=== PATIENT | female | born 1930 | race African-American/Black ===

== ENCOUNTER 2016-09-30 13:04 | Inpatient (IN) | payer MEDICARE, BC ==
[~2016-09-30] VITALS: Ht 309.9 cm; Wt 61.9 kg
[~2016-09-30 13:04] MED LIST: ALPR-394 PO; ASPI-1159 PO; DIGO125T82 PO; DILT180C3 PO; FLUT1DIS3 IH; OMEP20TA15 PO; OXYC-159 PO; POTASSIUM; SINGULAR; TORS100T11 PO; [UNRECOGNIZED DRUG - OTHER]
[2016-09-30 14:25] LABS: BASOPHILS % 0.6 % (0.0-2.0); EOSINOPHILS % 4.2 % (0.0-5.0); HEMATOCRIT. 27.4 % (36.0-48.0); HEMOGLOBIN. 9.1 g/dL (12.0-16.0); LYMPHOCYTES % 17.1 % (20.0-50.0); MEAN CORPUSCULAR HEMOGLOBIN 28.9 pg (28.0-32.0); MEAN CORPUSCULAR VOLUME 87.1 fL (81.0-99.0); MEAN PLATELET VOLUME 8.8 fl (7.4-10.4); MONOCYTES % 8.5 % (2.0-8.0); NEUTROPHILS % 69.6 % (40.0-76.0); PLATELET 213 x1000/uL (130-400); RED BLOOD CELL COUNT 3.14 mill/uL (4.2-5.4); RED CELL DISTRIBUTION WIDTH 17.3 % (11.6-14.6)
[2016-09-30 14:31] LABS: CHLORIDE 109 mEq/L (98-107)
[2016-09-30 14:32] LABS: PARTIAL THROMBOPLASTIN TIME 27.1 sec (23.4-31.0); PROTHROMBIN TIME 10.1 sec (9.4-11.6)
[2016-09-30 14:42] LABS: CARBON DIOXIDE 28 mEq/L (21-32); TROPONIN I 0.05 ng/mL (0.00-0.04)
[2016-09-30 14:47] LABS: CREATINE KINASE MB FRACTION 1.1 ng/mL (0.5-3.6)
[2016-09-30 14:53] LABS: DIGOXIN 0.5 ng/mL (0.9-2.0)
[2016-09-30] MEDS ORDERED: TRAMADOL 50MG TABLET PO ONE (15:45)
[2016-09-30 17:15] VITALS: BP 156/64
[2016-09-30] MEDS ORDERED: MORPHINE SULFATE 4 MG/ML CPJ (NOT FOR IM USE) IV SCH (18:00)
[2016-09-30] MEDS ORDERED: CELECOXIB 200MG CAPSULE PO SCH (18:10)
[2016-09-30 20:00] VITALS: BP 157/56
[2016-09-30] MEDS ORDERED: MORPHINE SULFATE 4 MG/ML CPJ (NOT FOR IM USE) IV PRN (22:45)
[2016-09-30] MEDS ORDERED: ACETAMINOPHEN 325MG TABLET PO PRN (22:45)
[2016-09-30] MEDS ORDERED: MAGNESIUM HYDROXIDE 400MG/5ML 30ML UDC PO PRN (22:45)
[2016-09-30] MEDS ORDERED: CLOPIDOGREL 75MG TABLET PO NR (23:00)
[2016-09-30] MEDS: CYCLOBENZAPRINE 10MG TABLET PO SCH (23:57)
[2016-10-01] VITALS: BP 140/55
[2016-10-01 04:00] VITALS: BP 144/51
[2016-10-01] MEDS: CYCLOBENZAPRINE 10MG TABLET PO SCH ×3 (05:08→21:51)
[2016-10-01] MEDS: HYDROCODONE/ACETAMINOPHEN 10/325MG TABLET PO PRN ×3 (05:10→14:30)
[2016-10-01] MEDS: OMEPRAZOLE 20MG CAPSULE EXTENDED RELEASE PO SCH ×2 (06:32→17:45)
[2016-10-01 07:34] LABS: BASOPHILS % 0.7 % (0.0-2.0); EOSINOPHILS % 5.7 % (0.0-5.0); HEMATOCRIT. 25.7 % (36.0-48.0); HEMOGLOBIN. 8.4 g/dL (12.0-16.0); LYMPHOCYTES % 20.5 % (20.0-50.0); MEAN CORPUSCULAR HEMOGLOBIN 28.7 pg (28.0-32.0); MEAN CORPUSCULAR VOLUME 87.8 fL (81.0-99.0); MEAN PLATELET VOLUME 9.1 fl (7.4-10.4); MONOCYTES % 9.3 % (2.0-8.0); NEUTROPHILS % 63.8 % (40.0-76.0); PLATELET 203 x1000/uL (130-400); RED BLOOD CELL COUNT 2.93 mill/uL (4.2-5.4); RED CELL DISTRIBUTION WIDTH 16.9 % (11.6-14.6)
[2016-10-01 08:00] VITALS: BP 123/60
[2016-10-01 08:52] LABS: CARBON DIOXIDE 27 mEq/L (21-32); CHLORIDE 108 mEq/L (98-107)
[2016-10-01] MEDS: CELECOXIB 100MG CAPSULE PO SCH ×2 (08:53→17:45)
[2016-10-01] MEDS: CLOPIDOGREL 75MG TABLET PO SCH (08:53)
[2016-10-01] MEDS: DILTIAZEM HCL 180MG CAPSULE CD 24HR PO SCH (08:53)
[2016-10-01 11:45] VITALS: BP 140/45
[2016-10-01 15:41] VITALS: BP 145/67
[2016-10-01] MEDS ORDERED: DIGOXIN 125MCG TABLET PO SCH (18:00)
[2016-10-01 20:00] VITALS: BP 143/60
[2016-10-01] MEDS ORDERED: KETOROLAC 15MG/ML VIAL IV SCH (21:30)
[2016-10-01] MEDS ORDERED: NORTRIPTYLINE HCL 10MG CAPSULE PO SCH (21:30)
[2016-10-02] VITALS: BP 152/56
[2016-10-02 04:00] VITALS: BP 147/61
[2016-10-02] MEDS: HYDROCODONE/ACETAMINOPHEN 10/325MG TABLET PO PRN (04:52)
[2016-10-02] MEDS: OMEPRAZOLE 20MG CAPSULE EXTENDED RELEASE PO SCH (06:21)
[2016-10-02] MEDS: CYCLOBENZAPRINE 10MG TABLET PO SCH ×2 (06:21→13:00)
[2016-10-02 06:51] LABS: BASOPHILS % 0.4 % (0.0-2.0); EOSINOPHILS % 7.3 % (0.0-5.0); HEMATOCRIT. 27.8 % (36.0-48.0); HEMOGLOBIN. 8.8 g/dL (12.0-16.0); LYMPHOCYTES % 23.3 % (20.0-50.0); MEAN CORPUSCULAR VOLUME 88.1 fL (81.0-99.0); MEAN PLATELET VOLUME 8.6 fl (7.4-10.4); MONOCYTES % 10.5 % (2.0-8.0); NEUTROPHILS % 58.5 % (40.0-76.0); PLATELET 244 x1000/uL (130-400); RED BLOOD CELL COUNT 3.15 mill/uL (4.2-5.4); RED CELL DISTRIBUTION WIDTH 16.7 % (11.6-14.6)
[2016-10-02 07:08] LABS: CARBON DIOXIDE 26 mEq/L (21-32); CHLORIDE 108 mEq/L (98-107)
[2016-10-02 08:00] VITALS: BP 150/75
[2016-10-02] MEDS: ACETAMINOPHEN 500MG TABLET PO SCH ×2 (08:26→13:00)
[2016-10-02] MEDS: CLOPIDOGREL 75MG TABLET PO SCH (08:27)
[2016-10-02] MEDS: DILTIAZEM HCL 180MG CAPSULE CD 24HR PO SCH (08:27)
[2016-10-02] MEDS ORDERED: GABAPENTIN 100MG CAPSULE PO SCH (09:00)
[2016-10-02] MEDS ORDERED: HEPARIN 1,000 UNITS PREMIX 0 ML IV ONE (09:56)
[2016-10-02 11:26] VITALS: BP_SYST 147; BP_SYST 150; BP_DIAS 61; BP_DIAS 75
[2016-10-02 12:00] VITALS: BP 137/78
[2016-10-02] MEDS ORDERED: NORTRIPTYLINE HCL 10MG CAPSULE PO SCH (21:00)
== END 2016-10-02 14:15 | DRG 64 ==
LOC: ER 13:58 → 8WST 15:31 → EDBEDREQ 15:41 → ENRESERV 16:01
PROVIDERS: ADMIT Internal Medicine; ATTEND Internal Medicine
DX: I63.9 Cerebral infarction, unspecified (principal); G82.50 Quadriplegia, unspecified; D64.9 Anemia, unspecified; I13.0 Hypertensive heart and chronic kidney disease with heart failure and stage 1 through stage 4 chronic kidney disease, or unspecified chronic kidney disease; I47.1 Supraventricular tachycardia; I50.9 Heart failure, unspecified; M48.02 Spinal stenosis, cervical region; G89.4 Chronic pain syndrome; H91.90 Unspecified hearing loss, unspecified ear; J45.909 Unspecified asthma, uncomplicated; M19.90 Unspecified osteoarthritis, unspecified site; N18.9 Chronic kidney disease, unspecified; R29.6 Repeated falls; Z96.653 Presence of artificial knee joint, bilateral; M54.5 Low back pain; K59.00 Constipation, unspecified; Z79.899 Other long term (current) drug therapy; Z88.0 Allergy status to penicillin; Z88.2 Allergy status to sulfonamides; Z90.721 Acquired absence of ovaries, unilateral; Z80.9 Family history of malignant neoplasm, unspecified
CPT/HCPCS: 36415; 70450; 71010; 72125; 72141; 73522; 80048; 80053; 80162; 82553; 83735; 83880; 84484; 85025; 85610; 85651; 85730; 93005; 93970; 97162; 97165; 99285; J1644; J1885; J2270

== ENCOUNTER 2016-10-02 14:17 | Inpatient (IN) | payer MEDICARE, BC ==
[~2016-10-02] VITALS: Ht 160 cm; Wt 59.0 kg
[2016-10-02 16:00] VITALS: BP 139/51
[2016-10-02] MEDS ORDERED: MAGNESIUM HYDROXIDE 400MG/5ML 30ML UDC PO PRN (16:00)
[2016-10-02] MEDS ORDERED: ACETAMINOPHEN 325MG TABLET PO PRN (16:00)
[2016-10-02 18:00] VITALS: BP 139/51
[2016-10-02] MEDS: DIGOXIN 125MCG TABLET PO SCH (18:08)
[2016-10-02] MEDS: GABAPENTIN 100MG CAPSULE PO SCH (18:08)
[2016-10-02] MEDS: OMEPRAZOLE 20MG CAPSULE EXTENDED RELEASE PO SCH (18:08)
[2016-10-02] MEDS: CELECOXIB 100MG CAPSULE PO SCH (18:08)
[2016-10-02] MEDS: ACETAMINOPHEN 500MG TABLET PO SCH ×2 (18:09→21:42)
[2016-10-02 20:00] VITALS: BP 126/65
[2016-10-02] MEDS ORDERED: NA PHOS,M-B/NA PHOS,DI-BA ENEMA 118ML PR PRN (20:45)
[2016-10-02] MEDS ORDERED: BISACODYL 10MG SUPP PR PRN (20:45)
[2016-10-02] MEDS ORDERED: NORTRIPTYLINE HCL 10MG CAPSULE PO SCH (21:00)
[2016-10-02] MEDS: CYCLOBENZAPRINE 10MG TABLET PO SCH (21:42)
[2016-10-03] MEDS: ACETAMINOPHEN 500MG TABLET PO SCH ×4 (04:42→22:00)
[2016-10-03] MEDS: CYCLOBENZAPRINE 10MG TABLET PO SCH ×3 (06:02→22:00)
[2016-10-03] MEDS: OMEPRAZOLE 20MG CAPSULE EXTENDED RELEASE PO SCH ×2 (06:02→16:53)
[2016-10-03 06:39] LABS: BASOPHILS % 0.8 % (0.0-2.0); EOSINOPHILS % 7.5 % (0.0-5.0); HEMATOCRIT. 27.6 % (36.0-48.0); HEMOGLOBIN. 8.9 g/dL (12.0-16.0); LYMPHOCYTES % 18.9 % (20.0-50.0); MEAN CORPUSCULAR HEMOGLOBIN 28.1 pg (28.0-32.0); MEAN CORPUSCULAR VOLUME 87.5 fL (81.0-99.0); MEAN PLATELET VOLUME 8.6 fl (7.4-10.4); MONOCYTES % 9.6 % (2.0-8.0); NEUTROPHILS % 63.2 % (40.0-76.0); PLATELET 255 x1000/uL (130-400); RED BLOOD CELL COUNT 3.16 mill/uL (4.2-5.4); RED CELL DISTRIBUTION WIDTH 16.8 % (11.6-14.6)
[2016-10-03 07:09] LABS: CARBON DIOXIDE 25 mEq/L (21-32); CHLORIDE 108 mEq/L (98-107)
[2016-10-03 07:11] LABS: PREALBUMIN 11.5 mg/dL (20.0-40.0)
[2016-10-03 08:00] VITALS: BP 159/63
[2016-10-03] MEDS: DOCUSATE SODIUM 100MG CAPSULE PO SCH ×2 (08:42→16:53)
[2016-10-03] MEDS: GABAPENTIN 100MG CAPSULE PO SCH ×2 (08:42→16:53)
[2016-10-03] MEDS: DILTIAZEM HCL 180MG CAPSULE CD 24HR PO SCH (08:43)
[2016-10-03] MEDS: CELECOXIB 100MG CAPSULE PO SCH ×2 (08:43→16:53)
[2016-10-03] MEDS: CLOPIDOGREL 75MG TABLET PO SCH (08:44)
[2016-10-03 12:37] VITALS: BP 119/59
[2016-10-03] MEDS: HYDROCODONE/ACETAMINOPHEN 10/325MG TABLET PO PRN (12:40)
[2016-10-03 12:45] VITALS: BP 130/63
[2016-10-03] MEDS: TORSEMIDE 10MG TABLET PO NR ×3 (13:30→16:11)
[2016-10-03 16:00] VITALS: BP 131/62
[2016-10-03] MEDS: DIGOXIN 125MCG TABLET PO SCH (17:05)
[2016-10-03 20:00] VITALS: BP 140/50
[2016-10-03] MEDS ORDERED: NON FORMULARY PATIENT HOME MED EA XX SCH (22:00)
[2016-10-03] MEDS: NORTRIPTYLINE HCL 25MG CAPSULE PO SCH (23:38)
[2016-10-04] MEDS: ACETAMINOPHEN 500MG TABLET PO SCH (03:35)
[2016-10-04] MEDS: CYCLOBENZAPRINE 10MG TABLET PO SCH ×3 (05:31→21:18)
[2016-10-04] MEDS: HYDROCODONE/ACETAMINOPHEN 10/325MG TABLET PO PRN ×2 (05:33→19:42)
[2016-10-04] MEDS: OMEPRAZOLE 20MG CAPSULE EXTENDED RELEASE PO SCH ×2 (06:21→18:05)
[2016-10-04 06:32] LABS: BASOPHILS % 0.6 % (0.0-2.0); EOSINOPHILS % 8.5 % (0.0-5.0); HEMATOCRIT. 26.2 % (36.0-48.0); HEMOGLOBIN. 8.6 g/dL (12.0-16.0); MEAN CORPUSCULAR HEMOGLOBIN 28.7 pg (28.0-32.0); MEAN CORPUSCULAR VOLUME 87.1 fL (81.0-99.0); MEAN PLATELET VOLUME 8.5 fl (7.4-10.4); MONOCYTES % 7.6 % (2.0-8.0); NEUTROPHILS % 57.3 % (40.0-76.0); PLATELET 281 x1000/uL (130-400); RED BLOOD CELL COUNT 3.01 mill/uL (4.2-5.4); RED CELL DISTRIBUTION WIDTH 17.1 % (11.6-14.6)
[2016-10-04 07:37] LABS: CHLORIDE 111 mEq/L (98-107)
[2016-10-04 07:41] LABS: CARBON DIOXIDE 24 mEq/L (21-32); PHOSPHORUS 3.7 mg/dL (2.5-4.9)
[2016-10-04 08:00] VITALS: BP 152/63
[2016-10-04] MEDS ORDERED: NON FORMULARY PATIENT HOME MED EA PO ONE (09:00)
[2016-10-04] MEDS ORDERED: TORSEMIDE 10MG TABLET PO SCH (09:00)
[2016-10-04] MEDS: CELECOXIB 100MG CAPSULE PO SCH ×2 (10:20→18:05)
[2016-10-04] MEDS: DOCUSATE SODIUM 100MG CAPSULE PO SCH ×2 (10:21→18:05)
[2016-10-04] MEDS: CLOPIDOGREL 75MG TABLET PO SCH (10:21)
[2016-10-04] MEDS: GABAPENTIN 100MG CAPSULE PO SCH ×2 (10:21→18:05)
[2016-10-04] MEDS: DILTIAZEM HCL 180MG CAPSULE CD 24HR PO SCH (10:22)
[2016-10-04] MEDS: LIDOCAINE 5% PATCH TOP SCH (10:34)
[2016-10-04] MEDS: OXYCODONE HCL 5MG TABLET PO SCH ×3 (10:37→18:08)
[2016-10-04] MEDS: DIGOXIN 125MCG TABLET PO SCH (18:05)
[2016-10-04] MEDS: TORSEMIDE 10MG TABLET PO SCH (18:17)
[2016-10-04 20:00] VITALS: BP 144/54
[2016-10-04] MEDS: NORTRIPTYLINE HCL 25MG CAPSULE PO SCH (21:18)
[2016-10-05] MEDS: OMEPRAZOLE 20MG CAPSULE EXTENDED RELEASE PO SCH (06:07)
[2016-10-05] MEDS: CYCLOBENZAPRINE 10MG TABLET PO SCH (06:07)
[2016-10-05 06:54] LABS: CLARITY URINE CLEAR (CLEAR); COLOR URINE YELLOW (YELLOW); GLUCOSE URINE NEGATIVE (NEGATIVE); KETONES URINE NEGATIVE (NEGATIVE); LEUKOCYTE ESTERASE URINE NEGATIVE (NEGATIVE); NITRITE URINE NEGATIVE (NEGATIVE); OCCULT BLOOD URINE NEGATIVE (NEGATIVE); PH URINE 5.5 (4.5-8.0); PROTEIN URINE NEGATIVE (NEGATIVE); SPECIFIC GRAVITY URINE 1.008 (1.005-1.030); UROBILINOGEN URINE 0.2 E.U./dL (0.2-1.0)
[2016-10-05 08:00] VITALS: BP 135/70
[2016-10-05 09:34] LABS: BASOPHILS % 0.7 % (0.0-2.0); EOSINOPHILS % 9.9 % (0.0-5.0); HEMATOCRIT. 30.1 % (36.0-48.0); HEMOGLOBIN. 9.9 g/dL (12.0-16.0); LYMPHOCYTES % 24.1 % (20.0-50.0); MEAN CORPUSCULAR HEMOGLOBIN 28.6 pg (28.0-32.0); MEAN CORPUSCULAR VOLUME 86.6 fL (81.0-99.0); MEAN PLATELET VOLUME 8.4 fl (7.4-10.4); NEUTROPHILS % 59.3 % (40.0-76.0); PLATELET 356 x1000/uL (130-400); RED BLOOD CELL COUNT 3.48 mill/uL (4.2-5.4); RED CELL DISTRIBUTION WIDTH 17.4 % (11.6-14.6)
[2016-10-05] MEDS: DILTIAZEM HCL 180MG CAPSULE CD 24HR PO SCH (09:49)
[2016-10-05] MEDS: CELECOXIB 100MG CAPSULE PO SCH ×2 (09:49→16:28)
[2016-10-05] MEDS: DOCUSATE SODIUM 100MG CAPSULE PO SCH ×2 (09:49→16:28)
[2016-10-05] MEDS: TORSEMIDE 10MG TABLET PO SCH (09:50)
[2016-10-05] MEDS: CLOPIDOGREL 75MG TABLET PO SCH (09:50)
[2016-10-05] MEDS: LIDOCAINE 5% PATCH TOP SCH (09:55)
[2016-10-05 10:05] LABS: CARBON DIOXIDE 26 mEq/L (21-32); CHLORIDE 104 mEq/L (98-107); HDL CHOLESTEROL 71 mg/dL (40-59); LDL CHOLESTEROL 108 mg/dL (5-100); PHOSPHORUS 3.9 mg/dL (2.5-4.9); TOTAL IRON BINDING CAPACITY 280 ug/dL (250-450)
[2016-10-05] MEDS: OXYCODONE HCL 5MG TABLET PO SCH ×3 (10:05→16:29)
[2016-10-05 10:28] LABS: FOLIC ACID (FOLATE) SERUM 10.1 ng/mL (>5.38)
[2016-10-05] MEDS: DIGOXIN 125MCG TABLET PO SCH (17:40)
[2016-10-05 20:00] VITALS: BP 101/65
[2016-10-05] MEDS: NORTRIPTYLINE HCL 25MG CAPSULE PO SCH (21:54)
[2016-10-06] MEDS: FAMOTIDINE 20MG TABLET PO SCH (06:17)
[2016-10-06 07:37] VITALS: BP 118/54
[2016-10-06] MEDS: TORSEMIDE 10MG TABLET PO SCH (08:35)
[2016-10-06] MEDS: CELECOXIB 100MG CAPSULE PO SCH ×2 (08:37→17:18)
[2016-10-06] MEDS: OXYCODONE HCL 5MG TABLET PO SCH ×3 (08:37→17:19)
[2016-10-06] MEDS: DOCUSATE SODIUM 100MG CAPSULE PO SCH ×2 (08:37→17:18)
[2016-10-06] MEDS: CLOPIDOGREL 75MG TABLET PO SCH (08:37)
[2016-10-06] MEDS: LIDOCAINE 5% PATCH TOP SCH (08:38)
[2016-10-06 10:10] VITALS: BP 120/44
[2016-10-06] MEDS: DILTIAZEM HCL 180MG CAPSULE CD 24HR PO SCH (10:10)
[2016-10-06 12:20] VITALS: BP 134/51
[2016-10-06 17:15] VITALS: BP 133/50
[2016-10-06] MEDS: DIGOXIN 125MCG TABLET PO SCH (17:18)
[2016-10-06 19:00] VITALS: BP 111/55
[2016-10-06] MEDS: NORTRIPTYLINE HCL 25MG CAPSULE PO SCH (21:36)
[2016-10-06] MEDS: IRON SUCROSE COMPLEX 100 MG in SODIUM CHLORIDE 0.9% 100 ML IV SCH (22:26)
[2016-10-07] MEDS: FAMOTIDINE 20MG TABLET PO SCH (06:26)
[2016-10-07 08:00] VITALS: BP 173/75
[2016-10-07] MEDS: DILTIAZEM HCL 180MG CAPSULE CD 24HR PO SCH (09:00)
[2016-10-07 09:33] VITALS: BP 103/47
[2016-10-07] MEDS: DOCUSATE SODIUM 100MG CAPSULE PO SCH ×2 (09:40→18:20)
[2016-10-07] MEDS: CLOPIDOGREL 75MG TABLET PO SCH (09:40)
[2016-10-07] MEDS: DULOXETINE HCL 20MG DR CAPSULE PO SCH (09:41)
[2016-10-07] MEDS: CELECOXIB 100MG CAPSULE PO SCH ×2 (09:41→18:20)
[2016-10-07] MEDS: TORSEMIDE 10MG TABLET PO SCH (09:42)
[2016-10-07] MEDS: LIDOCAINE 5% PATCH TOP SCH (09:44)
[2016-10-07] MEDS: OXYCODONE HCL 5MG TABLET PO SCH ×3 (09:45→18:21)
[2016-10-07 13:15] VITALS: BP 104/37
[2016-10-07 14:40] VITALS: BP 110/50
[2016-10-07 17:36] VITALS: BP 131/68
[2016-10-07] MEDS: DIGOXIN 125MCG TABLET PO SCH (18:20)
[2016-10-07 20:00] VITALS: BP 117/55
[2016-10-07] MEDS: NORTRIPTYLINE HCL 25MG CAPSULE PO SCH (21:50)
[2016-10-07] MEDS: IRON SUCROSE COMPLEX 100 MG in SODIUM CHLORIDE 0.9% 100 ML IV SCH (21:51)
[2016-10-08] MEDS: FAMOTIDINE 20MG TABLET PO SCH (05:45)
[2016-10-08 07:10] LABS: BASOPHILS % 1.4 % (0.0-2.0); EOSINOPHILS % 7.8 % (0.0-5.0); HEMATOCRIT. 28.6 % (36.0-48.0); HEMOGLOBIN. 9.4 g/dL (12.0-16.0); LYMPHOCYTES % 27.4 % (20.0-50.0); MEAN CORPUSCULAR HEMOGLOBIN 28.3 pg (28.0-32.0); MEAN CORPUSCULAR VOLUME 86.4 fL (81.0-99.0); MEAN PLATELET VOLUME 8.1 fl (7.4-10.4); MONOCYTES % 10.4 % (2.0-8.0); PLATELET 374 x1000/uL (130-400); RED BLOOD CELL COUNT 3.32 mill/uL (4.2-5.4); RED CELL DISTRIBUTION WIDTH 16.8 % (11.6-14.6)
[2016-10-08 07:20] LABS: CARBON DIOXIDE 32 mEq/L (21-32); CHLORIDE 102 mEq/L (98-107)
[2016-10-08 08:00] VITALS: BP 146/48
[2016-10-08] MEDS: TORSEMIDE 10MG TABLET PO SCH (08:11)
[2016-10-08] MEDS: CLOPIDOGREL 75MG TABLET PO SCH (08:12)
[2016-10-08] MEDS: DOCUSATE SODIUM 100MG CAPSULE PO SCH ×2 (08:12→17:26)
[2016-10-08] MEDS: DILTIAZEM HCL 180MG CAPSULE CD 24HR PO SCH (08:13)
[2016-10-08] MEDS: DULOXETINE HCL 20MG DR CAPSULE PO SCH (08:14)
[2016-10-08] MEDS: CELECOXIB 100MG CAPSULE PO SCH ×2 (08:14→17:26)
[2016-10-08] MEDS: OXYCODONE HCL 5MG TABLET PO SCH ×3 (08:17→17:27)
[2016-10-08] MEDS: LIDOCAINE 5% PATCH TOP SCH (08:19)
[2016-10-08] MEDS: LACTULOSE 20G/30ML UDC PO SCH ×3 (14:19→17:00)
[2016-10-08] MEDS: DIGOXIN 125MCG TABLET PO SCH (18:37)
[2016-10-08 20:00] VITALS: BP 120/37
[2016-10-08] MEDS: NORTRIPTYLINE HCL 25MG CAPSULE PO SCH (20:52)
[2016-10-08] MEDS: ATORVASTATIN CALCIUM 10MG TABLET PO SCH (20:52)
[2016-10-08] MEDS: IRON SUCROSE COMPLEX 100 MG in SODIUM CHLORIDE 0.9% 100 ML IV SCH (20:53)
[2016-10-08] MEDS: HYDROCODONE/ACETAMINOPHEN 10/325MG TABLET PO PRN (20:53)
[2016-10-09] MEDS: HYDROCODONE/ACETAMINOPHEN 10/325MG TABLET PO PRN ×3 (03:03→21:48)
[2016-10-09] MEDS: FAMOTIDINE 20MG TABLET PO SCH (06:14)
[2016-10-09 08:00] VITALS: BP 119/50
[2016-10-09] MEDS: TORSEMIDE 10MG TABLET PO SCH (08:37)
[2016-10-09] MEDS: CELECOXIB 100MG CAPSULE PO SCH ×2 (08:38→17:40)
[2016-10-09] MEDS: CLOPIDOGREL 75MG TABLET PO SCH (08:38)
[2016-10-09] MEDS: DOCUSATE SODIUM 100MG CAPSULE PO SCH ×2 (08:38→17:40)
[2016-10-09] MEDS: DULOXETINE HCL 20MG DR CAPSULE PO SCH (08:39)
[2016-10-09] MEDS: OXYCODONE HCL 5MG TABLET PO SCH (08:41)
[2016-10-09] MEDS: DILTIAZEM HCL 180MG CAPSULE CD 24HR PO SCH (08:43)
[2016-10-09] MEDS: LIDOCAINE 5% PATCH TOP SCH (08:45)
[2016-10-09 12:49] LABS: BASOPHILS % 0.9 % (0.0-2.0); EOSINOPHILS % 6.3 % (0.0-5.0); HEMATOCRIT. 29.3 % (36.0-48.0); HEMOGLOBIN. 9.6 g/dL (12.0-16.0); LYMPHOCYTES % 21.5 % (20.0-50.0); MEAN CORPUSCULAR HEMOGLOBIN 28.7 pg (28.0-32.0); MEAN CORPUSCULAR VOLUME 87.6 fL (81.0-99.0); MEAN PLATELET VOLUME 8.4 fl (7.4-10.4); MONOCYTES % 6.9 % (2.0-8.0); NEUTROPHILS % 64.4 % (40.0-76.0); PLATELET 387 x1000/uL (130-400); RED BLOOD CELL COUNT 3.34 mill/uL (4.2-5.4); RED CELL DISTRIBUTION WIDTH 16.8 % (11.6-14.6)
[2016-10-09 15:20] VITALS: BP 113/47
[2016-10-09] MEDS: DIGOXIN 125MCG TABLET PO SCH (17:40)
[2016-10-09 20:00] VITALS: BP 160/52
[2016-10-09] MEDS: NORTRIPTYLINE HCL 25MG CAPSULE PO SCH (21:46)
[2016-10-09] MEDS: ATORVASTATIN CALCIUM 10MG TABLET PO SCH (21:46)
[2016-10-09] MEDS: IRON SUCROSE COMPLEX 100 MG in SODIUM CHLORIDE 0.9% 100 ML IV SCH (21:56)
[2016-10-10 04:18] LABS: 25-HYDROXY VITAMIN D3 22 ng/mL (.)
[2016-10-10] MEDS ORDERED: HYDROCODONE/ACETAMINOPHEN 10/325MG TABLET PO PRN (05:30)
[2016-10-10 06:05] LABS: BASOPHILS % 1.1 % (0.0-2.0); EOSINOPHILS % 7.6 % (0.0-5.0); HEMATOCRIT. 26.6 % (36.0-48.0); HEMOGLOBIN. 8.8 g/dL (12.0-16.0); MEAN CORPUSCULAR HEMOGLOBIN 28.3 pg (28.0-32.0); MEAN CORPUSCULAR VOLUME 86.2 fL (81.0-99.0); MEAN PLATELET VOLUME 8.1 fl (7.4-10.4); MONOCYTES % 7.7 % (2.0-8.0); NEUTROPHILS % 61.6 % (40.0-76.0); PLATELET 391 x1000/uL (130-400); RED BLOOD CELL COUNT 3.09 mill/uL (4.2-5.4)
[2016-10-10] MEDS: FAMOTIDINE 20MG TABLET PO SCH (06:23)
[2016-10-10 08:00] VITALS: BP 132/66
[2016-10-10] MEDS: CELECOXIB 100MG CAPSULE PO SCH (08:31)
[2016-10-10] MEDS: DOCUSATE SODIUM 100MG CAPSULE PO SCH (08:31)
[2016-10-10] MEDS: CLOPIDOGREL 75MG TABLET PO SCH (08:31)
[2016-10-10] MEDS: DULOXETINE HCL 20MG DR CAPSULE PO SCH (08:36)
[2016-10-10] MEDS: DILTIAZEM HCL 180MG CAPSULE CD 24HR PO SCH (08:37)
[2016-10-10] MEDS: LIDOCAINE 5% PATCH TOP SCH (08:37)
[2016-10-10] MEDS: TORSEMIDE 10MG TABLET PO SCH (09:05)
[2016-10-10 11:48] VITALS: BP 132/66
== END 2016-10-10 12:25 | disposition home health service (06) | DRG 64 ==
PROVIDERS: ADMIT Physical Medicine & Rehabilitation Spinal Cord Injury Medicine; ATTEND Internal Medicine
DX: I63.9 Cerebral infarction, unspecified (principal); G82.50 Quadriplegia, unspecified; E46 Unspecified protein-calorie malnutrition; K59.2 Neurogenic bowel, not elsewhere classified; M48.02 Spinal stenosis, cervical region; N31.9 Neuromuscular dysfunction of bladder, unspecified; G95.20 Unspecified cord compression; M50.23 Other cervical disc displacement, cervicothoracic region; R33.9 Retention of urine, unspecified; Z96.653 Presence of artificial knee joint, bilateral; N18.9 Chronic kidney disease, unspecified; K59.00 Constipation, unspecified; I12.9 Hypertensive chronic kidney disease with stage 1 through stage 4 chronic kidney disease, or unspecified chronic kidney disease; G89.4 Chronic pain syndrome; G47.00 Insomnia, unspecified; R26.89 Other abnormalities of gait and mobility; F32.9 Major depressive disorder, single episode, unspecified; D64.9 Anemia, unspecified; M54.81 Occipital neuralgia; F01.50 Vascular dementia, unspecified severity, without behavioral disturbance, psychotic disturbance, mood disturbance, and anxiety; F06.31 Mood disorder due to known physiological condition with depressive features; E61.1 Iron deficiency; R53.81 Other malaise; Z82.49 Family history of ischemic heart disease and other diseases of the circulatory system; Z88.2 Allergy status to sulfonamides; Z88.0 Allergy status to penicillin; Z79.899 Other long term (current) drug therapy; Z87.891 Personal history of nicotine dependence; Z68.23 Body mass index [BMI] 23.0-23.9, adult
CPT/HCPCS: 36415; 80048; 80053; 80061; 81003; 82270; 82306; 82607; 82728; 82746; 83036; 83540; 83550; 83721; 83735; 84100; 84134; 84443; 84630; 85025; 87086; 92523; 97110; 97112; 97116; 97162; 97167; 97530; 97532; 97535; J7050

== ENCOUNTER 2017-05-30 03:27 | Inpatient (IN) | payer MEDICARE, BC ==
[~2017-05-30] VITALS: Ht 160 cm; Wt 66.9 kg
[~2017-05-30 03:27] MED LIST changes: -OXYC-159 PO; -POTASSIUM; -SINGULAR; -[UNRECOGNIZED DRUG - OTHER]
[2017-05-30 04:42] VITALS: BP 153/66
[2017-05-30] MEDS ORDERED: IPRATROPIUM/ALBUTEROL 0.5-3(2.5)MG/3ML NEB HHN PRN ×2 (06:30→15:00)
[2017-05-30 08:00] VITALS: BP 134/51
[2017-05-30] MEDS ORDERED: ALPRAZOLAM 0.5 MG TABLET PO PRN (08:45)
[2017-05-30] MEDS ORDERED: MEDICATION NOT ON FORMULARY EA (Fluticasone/Salmeterol (Advair 250-50 Diskus) 1 DISK) IH PRN (08:45)
[2017-05-30] MEDS ORDERED: MEDICATION NOT ON FORMULARY EA (Alprazolam 1 MG) PO PRN (08:45)
[2017-05-30] MEDS: IPRATROPIUM/ALBUTEROL 0.5-3(2.5)MG/3ML NEB HHN SCH ×4 (08:59→20:13)
[2017-05-30] MEDS ORDERED: ENOXAPARIN 40MG/0.4ML SYR SUBCUT SCH (09:00)
[2017-05-30] MEDS ORDERED: MEDICATION NOT ON FORMULARY EA (Omeprazole Magnesium (Prilosec Otc) 20 MG) PO SCH (09:00)
[2017-05-30] MEDS ORDERED: DIGOXIN 125MCG TABLET PO SCH (09:00)
[2017-05-30] MEDS ORDERED: LEVOFLOXACIN 500MG PREMIX 100 ML IV NR ×2 (09:00→13:00)
[2017-05-30] MEDS ORDERED: DEXT 5% WATER + KCL 20MEQ/L 1,000 ML IV SCH (09:00)
[2017-05-30 12:00] VITALS: BP 149/68
[2017-05-30] MEDS ORDERED: BUDESONIDE 0.5MG/2ML NEB HHN SCH (12:00)
[2017-05-30] MEDS ORDERED: ALBUTEROL (0.083%) 2.5MG/3ML NEB HHN SCH (12:00)
[2017-05-30] MEDS: GUAIFENESIN 200MG/10ML SUGAR FREE UDC PO PRN (12:12)
[2017-05-30] MEDS: DILTIAZEM HCL 180MG CAPSULE CD 24HR PO SCH (12:14)
[2017-05-30] MEDS: HYDROCODONE/ACETAMINOPHEN 10/325MG TABLET PO PRN (12:15)
[2017-05-30] MEDS: GABAPENTIN 300MG CAPSULE PO SCH ×2 (12:15→21:03)
[2017-05-30] MEDS: POTASSIUM CHLORIDE 20MEQ TABLET SR PO SCH ×3 (12:15→17:25)
[2017-05-30] MEDS: ASPIRIN 81MG EC TABLET PO SCH (12:15)
[2017-05-30] MEDS: ENOXAPARIN 30MG/0.3ML SYR SUBCUT SCH (12:16)
[2017-05-30] MEDS: OMEPRAZOLE 20MG CAPSULE EXTENDED RELEASE PO SCH (12:27)
[2017-05-30] MEDS: BENZONATATE 200MG CAPSULE PO SCH ×2 (13:32→13:35)
[2017-05-30] MEDS ORDERED: DILTIAZEM HCL 180MG CAPSULE CD 24HR PO SCH (14:00)
[2017-05-30 16:00] VITALS: BP 111/52
[2017-05-30] MEDS: DIGOXIN 125MCG TABLET PO SCH (17:25)
[2017-05-30] MEDS: DEXT 5%/0.45% NACL KCL 20MEQ/L 1,000 ML IV SCH (17:31)
[2017-05-30 20:00] VITALS: BP 118/41
[2017-05-30 23:58] VITALS: BP 132/53
[2017-05-31] MEDS: IPRATROPIUM/ALBUTEROL 0.5-3(2.5)MG/3ML NEB HHN SCH ×3 (01:02→21:56)
[2017-05-31 04:11] VITALS: BP 94/42
[2017-05-31 06:14] LABS: BASOPHILS % 0.7 % (0.0-2.0); EOSINOPHILS % 6.7 % (0.0-5.0); HEMATOCRIT. 29.1 % (36.0-48.0); HEMOGLOBIN. 9.6 g/dL (12.0-16.0); LYMPHOCYTES % 9.6 % (20.0-50.0); MEAN CORPUSCULAR HEMOGLOBIN 27.9 pg (28.0-32.0); MEAN CORPUSCULAR VOLUME 84.3 fL (81.0-99.0); MEAN PLATELET VOLUME 8.5 fl (7.4-10.4); MONOCYTES % 3.4 % (2.0-8.0); NEUTROPHILS % 79.6 % (40.0-76.0); PLATELET 307 x1000/uL (130-400); RED BLOOD CELL COUNT 3.45 mill/uL (4.2-5.4); RED CELL DISTRIBUTION WIDTH 18.1 % (11.6-14.6)
[2017-05-31] MEDS: OMEPRAZOLE 20MG CAPSULE EXTENDED RELEASE PO SCH (06:30)
[2017-05-31] MEDS: BENZONATATE 200MG CAPSULE PO SCH ×3 (06:30→21:41)
[2017-05-31 06:43] LABS: PHOSPHORUS 2.9 mg/dL (2.5-4.9)
[2017-05-31] MEDS: HYDROCODONE/ACETAMINOPHEN 10/325MG TABLET PO PRN ×2 (06:44→14:31)
[2017-05-31 07:03] LABS: DIGOXIN 1.3 ng/mL (0.9-2.0)
[2017-05-31 07:39] VITALS: BP 109/65
[2017-05-31] MEDS: GABAPENTIN 300MG CAPSULE PO SCH ×2 (08:55→21:41)
[2017-05-31] MEDS: ASPIRIN 81MG EC TABLET PO SCH (08:55)
[2017-05-31] MEDS: GUAIFENESIN 200MG/10ML SUGAR FREE UDC PO PRN ×3 (08:55→18:15)
[2017-05-31] MEDS: POTASSIUM CHLORIDE 20MEQ TABLET SR PO SCH ×3 (08:55→16:47)
[2017-05-31] MEDS: ENOXAPARIN 30MG/0.3ML SYR SUBCUT SCH (08:55)
[2017-05-31] MEDS: DILTIAZEM HCL 180MG CAPSULE CD 24HR PO SCH (08:56)
[2017-05-31] MEDS: DEXT 5%/0.45% NACL KCL 20MEQ/L 1,000 ML IV SCH (10:13)
[2017-05-31] MEDS: LEVOFLOXACIN 250MG PREMIX 50 ML IV SCH (10:14)
[2017-05-31] MEDS: DOCUSATE SODIUM 250MG CAPSULE PO SCH (11:14)
[2017-05-31] MEDS: MAGNESIUM HYDROXIDE 400MG/5ML 30ML UDC PO PRN (11:15)
[2017-05-31] MEDS: METHYLPREDNISOLONE SOD SUCC 40 MG/ML VIAL IV SCH ×2 (11:17→20:35)
[2017-05-31 12:45] VITALS: BP 114/47
[2017-05-31 17:07] VITALS: BP 126/45
[2017-05-31] MEDS: DIGOXIN 125MCG TABLET PO SCH (18:00)
[2017-05-31 20:33] VITALS: BP 136/64
[2017-06-01] VITALS: BP 141/61
[2017-06-01] MEDS: ZOLPIDEM TARTRATE 5MG TABLET PO PRN ×2 (00:02→22:46)
[2017-06-01] MEDS: IPRATROPIUM/ALBUTEROL 0.5-3(2.5)MG/3ML NEB HHN SCH ×4 (01:20→22:25)
[2017-06-01] MEDS: GUAIFENESIN 200MG/10ML SUGAR FREE UDC PO PRN ×2 (03:08→17:51)
[2017-06-01] MEDS: METHYLPREDNISOLONE SOD SUCC 40 MG/ML VIAL IV SCH ×3 (03:08→20:30)
[2017-06-01 04:00] VITALS: BP 136/52
[2017-06-01] MEDS: BENZONATATE 200MG CAPSULE PO SCH ×3 (05:51→22:46)
[2017-06-01] MEDS: DEXT 5%/0.45% NACL KCL 20MEQ/L 1,000 ML IV SCH (05:56)
[2017-06-01 07:00] LABS: HEMATOCRIT. 31.8 % (36.0-48.0); HEMOGLOBIN. 10.4 g/dL (12.0-16.0); MEAN CORPUSCULAR HEMOGLOBIN 27.6 pg (28.0-32.0); MEAN CORPUSCULAR VOLUME 84.5 fL (81.0-99.0); MEAN PLATELET VOLUME 8.4 fl (7.4-10.4); PLATELET 350 x1000/uL (130-400); RED BLOOD CELL COUNT 3.76 mill/uL (4.2-5.4)
[2017-06-01 07:22] LABS: CHLORIDE 104 mEq/L (98-107)
[2017-06-01 08:00] VITALS: BP 116/60
[2017-06-01] MEDS: LEVOFLOXACIN 250MG PREMIX 50 ML IV SCH (10:30)
[2017-06-01] MEDS: GABAPENTIN 300MG CAPSULE PO SCH ×2 (10:31→20:30)
[2017-06-01] MEDS: OMEPRAZOLE 20MG CAPSULE EXTENDED RELEASE PO SCH ×2 (10:32→10:41)
[2017-06-01] MEDS: DILTIAZEM HCL 180MG CAPSULE CD 24HR PO SCH ×2 (10:32→10:45)
[2017-06-01] MEDS: DOCUSATE SODIUM 250MG CAPSULE PO SCH ×2 (10:32→10:41)
[2017-06-01] MEDS: ASPIRIN 81MG EC TABLET PO SCH (10:32)
[2017-06-01] MEDS: ENOXAPARIN 40MG/0.4ML SYR SUBCUT SCH (10:33)
[2017-06-01 12:00] VITALS: BP 155/58
[2017-06-01 16:00] VITALS: BP 148/62
[2017-06-01] MEDS: DIGOXIN 125MCG TABLET PO SCH (17:51)
[2017-06-01 20:00] VITALS: BP 122/77
[2017-06-01] MEDS: DEXT 5%/0.45% NACL 1000ML 1,000 ML IV SCH (20:52)
[2017-06-01] MEDS: MAGNESIUM HYDROXIDE 400MG/5ML 30ML UDC PO PRN (22:47)
[2017-06-01 23:37] LABS: PLATELET ESTIMATE NORMAL
[2017-06-02 00:36] VITALS: BP 143/55
[2017-06-02] MEDS: IPRATROPIUM/ALBUTEROL 0.5-3(2.5)MG/3ML NEB HHN SCH ×2 (01:20→09:06)
[2017-06-02] MEDS: METHYLPREDNISOLONE SOD SUCC 40 MG/ML VIAL IV SCH ×3 (03:42→18:17)
[2017-06-02 04:00] VITALS: BP 137/56
[2017-06-02] MEDS: BENZONATATE 200MG CAPSULE PO SCH ×3 (06:35→21:41)
[2017-06-02] MEDS: OMEPRAZOLE 20MG CAPSULE EXTENDED RELEASE PO SCH (06:35)
[2017-06-02 06:50] LABS: HEMATOCRIT. 32.9 % (36.0-48.0); HEMOGLOBIN. 10.8 g/dL (12.0-16.0); MEAN CORPUSCULAR HEMOGLOBIN 27.6 pg (28.0-32.0); MEAN CORPUSCULAR VOLUME 84.3 fL (81.0-99.0); MEAN PLATELET VOLUME 8.6 fl (7.4-10.4); PLATELET 354 x1000/uL (130-400); RED BLOOD CELL COUNT 3.91 mill/uL (4.2-5.4); RED CELL DISTRIBUTION WIDTH 17.8 % (11.6-14.6)
[2017-06-02 07:06] LABS: CHLORIDE 107 mEq/L (98-107)
[2017-06-02 07:12] LABS: PHOSPHORUS 2.9 mg/dL (2.5-4.9)
[2017-06-02 08:00] VITALS: BP 142/63
[2017-06-02] MEDS: ASPIRIN 81MG EC TABLET PO SCH (09:42)
[2017-06-02] MEDS: GABAPENTIN 300MG CAPSULE PO SCH ×2 (09:42→21:42)
[2017-06-02] MEDS: ENOXAPARIN 40MG/0.4ML SYR SUBCUT SCH (09:44)
[2017-06-02] MEDS: LEVOFLOXACIN 250MG PREMIX 50 ML IV SCH (09:44)
[2017-06-02 12:10] VITALS: BP 144/72
[2017-06-02] MEDS: DEXT 5%/0.45% NACL 1000ML 1,000 ML IV SCH ×2 (12:40→15:49)
[2017-06-02 13:41] LABS: PLATELET ESTIMATE NORMAL
[2017-06-02] MEDS: ARFORMOTEROL TARTRATE 15MCG/2ML NEB NEB SCH ×2 (15:28→21:31)
[2017-06-02] MEDS: IPRATROPIUM BROMIDE (0.02%) 0.5MG/2.5ML NEB HHN SCH ×2 (15:28→21:31)
[2017-06-02 16:02] VITALS: BP 168/63
[2017-06-02] MEDS: DIGOXIN 125MCG TABLET PO SCH (18:17)
[2017-06-02] MEDS: HYDROCODONE/ACETAMINOPHEN 10/325MG TABLET PO PRN (18:27)
[2017-06-02 20:00] VITALS: BP 141/64
[2017-06-02] MEDS ORDERED: MAGNESIUM CITRATE 300ML SOLUTION PO NR (21:00)
[2017-06-02] MEDS: GUAIFENESIN 600MG ER TABLET PO SCH (21:42)
[2017-06-03] VITALS: BP 150/66
[2017-06-03] MEDS: IPRATROPIUM BROMIDE (0.02%) 0.5MG/2.5ML NEB HHN SCH ×5 (00:35→20:13)
[2017-06-03] MEDS: ZOLPIDEM TARTRATE 5MG TABLET PO PRN ×2 (01:10→22:22)
[2017-06-03] MEDS: METHYLPREDNISOLONE SOD SUCC 40 MG/ML VIAL IV SCH ×3 (03:07→18:16)
[2017-06-03 04:00] VITALS: BP 141/67
[2017-06-03] MEDS: FAMOTIDINE 20MG TABLET PO SCH (06:31)
[2017-06-03] MEDS: BENZONATATE 200MG CAPSULE PO SCH ×3 (06:31→21:14)
[2017-06-03 07:42] VITALS: BP 169/76
[2017-06-03] MEDS: ARFORMOTEROL TARTRATE 15MCG/2ML NEB NEB SCH ×2 (08:03→20:12)
[2017-06-03] MEDS: DILTIAZEM HCL 180MG CAPSULE CD 24HR PO SCH (08:42)
[2017-06-03] MEDS: GABAPENTIN 300MG CAPSULE PO SCH ×2 (08:42→21:15)
[2017-06-03] MEDS: GUAIFENESIN 600MG ER TABLET PO SCH ×2 (08:43→21:14)
[2017-06-03] MEDS: ASPIRIN 81MG EC TABLET PO SCH (08:43)
[2017-06-03] MEDS: DOCUSATE SODIUM 250MG CAPSULE PO SCH (08:43)
[2017-06-03] MEDS: ENOXAPARIN 40MG/0.4ML SYR SUBCUT SCH (08:43)
[2017-06-03] MEDS: LEVOFLOXACIN 250MG PREMIX 50 ML IV SCH (09:01)
[2017-06-03] MEDS: MAGNESIUM HYDROXIDE 400MG/5ML 30ML UDC PO PRN (11:55)
[2017-06-03] MEDS: GUAIFENESIN 200MG/10ML SUGAR FREE UDC PO PRN (11:56)
[2017-06-03 11:59] VITALS: BP 158/69
[2017-06-03] MEDS ORDERED: NA PHOS,M-B/NA PHOS,DI-BA ENEMA 118ML PR ONE (15:30)
[2017-06-03 16:11] VITALS: BP 105/81
[2017-06-03] MEDS: DIGOXIN 125MCG TABLET PO SCH (18:16)
[2017-06-03 20:00] VITALS: BP 148/65
[2017-06-03] MEDS: DEXT 5%/0.45% NACL 1000ML 1,000 ML IV SCH (21:15)
[2017-06-04] VITALS: BP 152/73
[2017-06-04] MEDS: IPRATROPIUM BROMIDE (0.02%) 0.5MG/2.5ML NEB HHN SCH ×3 (00:17→13:00)
[2017-06-04] MEDS: METHYLPREDNISOLONE SOD SUCC 40 MG/ML VIAL IV SCH ×2 (02:33→12:08)
[2017-06-04 04:00] VITALS: BP 169/79
[2017-06-04] MEDS: BENZONATATE 200MG CAPSULE PO SCH ×2 (06:30→13:27)
[2017-06-04] MEDS: FAMOTIDINE 20MG TABLET PO SCH (06:30)
[2017-06-04 07:37] VITALS: BP 164/66
[2017-06-04] MEDS: ARFORMOTEROL TARTRATE 15MCG/2ML NEB NEB SCH (09:20)
[2017-06-04] MEDS: DOCUSATE SODIUM 250MG CAPSULE PO SCH (10:11)
[2017-06-04] MEDS: ENOXAPARIN 40MG/0.4ML SYR SUBCUT SCH (10:11)
[2017-06-04] MEDS: ASPIRIN 81MG EC TABLET PO SCH (10:11)
[2017-06-04] MEDS: GUAIFENESIN 600MG ER TABLET PO SCH (10:11)
[2017-06-04] MEDS: GABAPENTIN 300MG CAPSULE PO SCH (10:11)
[2017-06-04] MEDS: DILTIAZEM HCL 180MG CAPSULE CD 24HR PO SCH (10:12)
[2017-06-04] MEDS: LEVOFLOXACIN 250MG PREMIX 50 ML IV SCH (10:12)
[2017-06-04 11:36] VITALS: BP 140/61
[2017-06-04 14:04] LABS: CHLORIDE 109 mEq/L (98-107)
[2017-06-04 14:17] VITALS: BP 140/61
== END 2017-06-04 15:25 | disposition home health service (06) | DRG 193 ==
LOC: 6WST 03:27
PROVIDERS: ADMIT Internal Medicine; ATTEND Internal Medicine
DX: J18.9 Pneumonia, unspecified organism (principal); J96.00 Acute respiratory failure, unspecified whether with hypoxia or hypercapnia; J45.902 Unspecified asthma with status asthmaticus; I47.1 Supraventricular tachycardia; K59.00 Constipation, unspecified; J18.0 Bronchopneumonia, unspecified organism; G47.00 Insomnia, unspecified; M46.86 Other specified inflammatory spondylopathies, lumbar region; M46.82 Other specified inflammatory spondylopathies, cervical region; H91.90 Unspecified hearing loss, unspecified ear; I10 Essential (primary) hypertension; G89.29 Other chronic pain; Z88.0 Allergy status to penicillin; Z88.2 Allergy status to sulfonamides; Z82.5 Family history of asthma and other chronic lower respiratory diseases; Z82.49 Family history of ischemic heart disease and other diseases of the circulatory system; Z84.1 Family history of disorders of kidney and ureter
CPT/HCPCS: 36415; 71250; 80048; 80162; 83735; 84100; 84484; 84550; 85025; 85651; 87070; 93306; 93970; 94640; 97116; 97162; 97165; 97530; 97535; C1893; J1650; J1956; J2920; J3490; J7030; J7050; J7060; J7620; J7626

== ENCOUNTER 2018-04-21 10:52 | Inpatient (IN) | payer MEDICARE, BC ==
[~2018-04-21] VITALS: Ht 160 cm; Wt 51.7 kg
[2018-04-21] MEDS ORDERED: SODIUM CHLORIDE 0.9% 1,000 ML IV ONE (13:12)
[2018-04-21 13:15] LABS: BASOPHILS % 0.3 % (0.0-2.0); EOSINOPHILS % 0.7 % (0.0-5.0); HEMATOCRIT. 32.3 % (36.0-48.0); HEMOGLOBIN. 10.6 g/dL (12.0-16.0); LYMPHOCYTES % 8.3 % (20.0-50.0); MEAN CORPUSCULAR HEMOGLOBIN 25.7 pg (28.0-32.0); MEAN CORPUSCULAR VOLUME 78.5 fL (81.0-99.0); MEAN PLATELET VOLUME 7.4 fl (7.4-10.4); MONOCYTES % 6.6 % (2.0-8.0); NEUTROPHILS % 84.1 % (40.0-76.0); PLATELET 596 x1000/uL (130-400); RED BLOOD CELL COUNT 4.12 mill/uL (4.2-5.4)
[2018-04-21 13:19] LABS: CHLORIDE 101 mEq/L (98-107)
[2018-04-21 13:22] LABS: INR 1.3
[2018-04-21] MEDS ORDERED: METRONIDAZOLE 500 MG PREMIX 100 ML IV ONE (15:15)
[2018-04-21] MEDS ORDERED: LEVOFLOXACIN 750MG PREMIX 150 ML IV ONE (15:15)
[2018-04-21 21:25] LABS: CLARITY URINE CLEAR (CLEAR); COLOR URINE YELLOW (YELLOW); KETONES URINE 1+ (NEGATIVE); LEUKOCYTE ESTERASE URINE 1+ (NEGATIVE); NITRITE URINE NEGATIVE (NEGATIVE); OCCULT BLOOD URINE NEGATIVE (NEGATIVE); PH URINE 6.5 (4.5-8.0); PROTEIN URINE 1+ (NEGATIVE); SPECIFIC GRAVITY URINE 1.009 (1.005-1.030)
[2018-04-22] VITALS (7 sets, daily range): BP systolic 105–151; BP diastolic 45–73
[2018-04-22] MEDS: DEXT 5%/0.45% NACL 1000ML 1,000 ML IV SCH (03:14)
[2018-04-22] MEDS: ONDANSETRON HCL 4MG/2ML INJ IV PRN ×2 (03:14→11:28)
[2018-04-22 06:59] LABS: HEMATOCRIT. 29.7 % (36.0-48.0); HEMOGLOBIN. 9.5 g/dL (12.0-16.0); MEAN CORPUSCULAR VOLUME 78.6 fL (81.0-99.0); MEAN PLATELET VOLUME 7.8 fl (7.4-10.4); PLATELET 500 x1000/uL (130-400); RED BLOOD CELL COUNT 3.78 mill/uL (4.2-5.4); RED CELL DISTRIBUTION WIDTH 18.5 % (11.6-14.6)
[2018-04-22 07:50] LABS: CHLORIDE 104 mEq/L (98-107)
[2018-04-22 07:57] LABS: AMYLASE 32 IU/L (25-115)
[2018-04-22 10:11] LABS: PLATELET ESTIMATE INCREASED
[2018-04-22] MEDS: POTASSIUM CHLORIDE 20MEQ/PACKET PO SCH ×2 (10:51→18:09)
[2018-04-22] MEDS: ENOXAPARIN 30MG/0.3ML SYR SUBCUT SCH (10:51)
[2018-04-22] MEDS: HYDROCODONE/ACETAMINOPHEN 10/325MG TABLET PO PRN (11:28)
[2018-04-22] MEDS ORDERED: ALBUTEROL (0.083%) 2.5MG/3ML NEB HHN PRN (13:45)
[2018-04-22] MEDS ORDERED: NON FORMULARY PATIENT HOME MED XX SCH (13:45)
[2018-04-22] MEDS: DILTIAZEM HCL 180MG CAPSULE CD 24HR PO SCH (14:24)
[2018-04-22] MEDS: OMEPRAZOLE 20MG CAPSULE EXTENDED RELEASE PO SCH (14:43)
[2018-04-22] MEDS: ALPRAZOLAM 0.5 MG TABLET PO SCH (18:10)
[2018-04-22] MEDS: DIGOXIN 125MCG TABLET PO SCH (23:15)
[2018-04-23] VITALS: BP 106/54
[2018-04-23 04:00] VITALS: BP 110/49
[2018-04-23 06:09] LABS: BASOPHILS % 0.7 % (0.0-2.0); EOSINOPHILS % 5.2 % (0.0-5.0); HEMATOCRIT. 29.7 % (36.0-48.0); HEMOGLOBIN. 9.6 g/dL (12.0-16.0); LYMPHOCYTES % 7.2 % (20.0-50.0); MEAN CORPUSCULAR HEMOGLOBIN 25.1 pg (28.0-32.0); MEAN CORPUSCULAR VOLUME 77.6 fL (81.0-99.0); MONOCYTES % 7.7 % (2.0-8.0); NEUTROPHILS % 79.2 % (40.0-76.0); PLATELET 435 x1000/uL (130-400); RED BLOOD CELL COUNT 3.83 mill/uL (4.2-5.4); RED CELL DISTRIBUTION WIDTH 18.4 % (11.6-14.6)
[2018-04-23 06:51] LABS: CHLORIDE 106 mEq/L (98-107)
[2018-04-23 08:00] VITALS: BP 106/52
[2018-04-23] MEDS: POTASSIUM CHLORIDE 20MEQ/PACKET PO SCH ×2 (08:36→17:12)
[2018-04-23] MEDS: ALPRAZOLAM 0.5 MG TABLET PO SCH ×2 (08:38→17:12)
[2018-04-23] MEDS: ENOXAPARIN 30MG/0.3ML SYR SUBCUT SCH (08:38)
[2018-04-23] MEDS: DILTIAZEM HCL 180MG CAPSULE CD 24HR PO SCH (08:46)
[2018-04-23] MEDS: OMEPRAZOLE 20MG CAPSULE EXTENDED RELEASE PO SCH (08:48)
[2018-04-23] MEDS ORDERED: ENOXAPARIN 40MG/0.4ML SYR SUBCUT SCH (09:00)
[2018-04-23] MEDS: BUDESONIDE 0.5MG/2ML NEB HHN SCH ×2 (09:21→20:30)
[2018-04-23] MEDS: ALBUTEROL (0.083%) 2.5MG/3ML NEB HHN SCH ×3 (09:21→20:30)
[2018-04-23 11:57] VITALS: BP 104/45
[2018-04-23 16:05] VITALS: BP 98/45
[2018-04-23] MEDS: DIGOXIN 125MCG TABLET PO SCH (18:04)
[2018-04-23 20:00] VITALS: BP 106/45
[2018-04-23 21:43] LABS: BASOPHILS % 0.8 % (0.0-2.0); EOSINOPHILS % 3.8 % (0.0-5.0); HEMATOCRIT. 33.9 % (36.0-48.0); HEMOGLOBIN. 10.6 g/dL (12.0-16.0); MEAN CORPUSCULAR HEMOGLOBIN 25.2 pg (28.0-32.0); MEAN CORPUSCULAR VOLUME 80.5 fL (81.0-99.0); MEAN PLATELET VOLUME 8.2 fl (7.4-10.4); MONOCYTES % 12.5 % (2.0-8.0); NEUTROPHILS % 68.9 % (40.0-76.0); PLATELET 404 x1000/uL (130-400); RED BLOOD CELL COUNT 4.22 mill/uL (4.2-5.4); RED CELL DISTRIBUTION WIDTH 19.2 % (11.6-14.6)
[2018-04-24] VITALS: BP 96/46
[2018-04-24] MEDS: ALBUTEROL (0.083%) 2.5MG/3ML NEB HHN SCH ×4 (02:21→20:00)
[2018-04-24 04:00] VITALS: BP 105/54
[2018-04-24] MEDS: OMEPRAZOLE 20MG CAPSULE EXTENDED RELEASE PO SCH (06:40)
[2018-04-24 07:59] LABS: CHLORIDE 105 mEq/L (98-107)
[2018-04-24 08:00] VITALS: BP 100/49
[2018-04-24] MEDS: BUDESONIDE 0.5MG/2ML NEB HHN SCH ×2 (08:30→20:00)
[2018-04-24] MEDS: ALPRAZOLAM 0.5 MG TABLET PO SCH ×2 (09:00→17:00)
[2018-04-24] MEDS: DILTIAZEM HCL 180MG CAPSULE CD 24HR PO SCH (09:00)
[2018-04-24] MEDS: ENOXAPARIN 30MG/0.3ML SYR SUBCUT SCH (09:04)
[2018-04-24] MEDS: POTASSIUM CHLORIDE 20MEQ/PACKET PO SCH ×3 (09:04→16:38)
[2018-04-24] MEDS: DEXT 5%/0.45% NACL 1000ML 1,000 ML IV SCH (09:05)
[2018-04-24 12:04] VITALS: BP 120/55
[2018-04-24] MEDS: HYDROCODONE/ACETAMINOPHEN 10/325MG TABLET PO PRN (13:05)
[2018-04-24] MEDS ORDERED: BISACODYL 10MG SUPP PR PRN (14:00)
[2018-04-24] MEDS ORDERED: MAGNESIUM HYDROXIDE 400MG/5ML 30ML UDC PO PRN (14:00)
[2018-04-24 15:30] VITALS: BP 99/53
[2018-04-24] MEDS: DIGOXIN 125MCG TABLET PO SCH ×2 (16:38→17:31)
[2018-04-24 20:00] VITALS: BP 123/66
[2018-04-25] VITALS (7 sets, daily range): BP systolic 111–148; BP diastolic 49–79
[2018-04-25] MEDS: METOCLOPRAMIDE HCL 10MG/2ML VIAL IV SCH ×5 (00:22→23:10)
[2018-04-25] MEDS: ALBUTEROL (0.083%) 2.5MG/3ML NEB HHN SCH ×5 (01:28→21:43)
[2018-04-25] MEDS: OMEPRAZOLE 20MG CAPSULE EXTENDED RELEASE PO SCH (06:20)
[2018-04-25 06:55] LABS: HEMATOCRIT. 32.1 % (36.0-48.0); HEMOGLOBIN. 10.4 g/dL (12.0-16.0); MEAN CORPUSCULAR HEMOGLOBIN 25.5 pg (28.0-32.0); RED BLOOD CELL COUNT 4.06 mill/uL (4.2-5.4)
[2018-04-25 07:12] LABS: CHLORIDE 111 mEq/L (98-107)
[2018-04-25 07:25] LABS: TOTAL IRON BINDING CAPACITY 168 ug/dL (250-450)
[2018-04-25 07:42] LABS: DIGOXIN 1.1 ng/mL (0.9-2.0)
[2018-04-25 08:56] LABS: NUCLEATED RED BLOOD CELLS 1 /100 WBC; PLATELET ESTIMATE INCREASED
[2018-04-25 08:57] LABS: PLATELET 470 x1000/uL (130-400)
[2018-04-25 08:58] LABS: MEAN PLATELET VOLUME 8.3 fl (7.4-10.4)
[2018-04-25] MEDS: BUDESONIDE 0.5MG/2ML NEB HHN SCH ×2 (09:09→21:43)
[2018-04-25 09:57] LABS: FOLIC ACID (FOLATE) SERUM 3.2 ng/mL (>5.38)
[2018-04-25] MEDS: ALPRAZOLAM 0.5 MG TABLET PO SCH (09:59)
[2018-04-25] MEDS: DILTIAZEM HCL 180MG CAPSULE CD 24HR PO SCH (10:00)
[2018-04-25] MEDS: POTASSIUM CHLORIDE 20MEQ/PACKET PO SCH ×3 (10:00→18:21)
[2018-04-25] MEDS: ENOXAPARIN 30MG/0.3ML SYR SUBCUT SCH (10:06)
[2018-04-25] MEDS ORDERED: ALPRAZOLAM 0.5 MG TABLET PO PRN (15:00)
[2018-04-25] MEDS: DIGOXIN 125MCG TABLET PO SCH (18:20)
[2018-04-25] MEDS: FOLIC ACID 1MG TABLET PO SCH (18:21)
[2018-04-25] MEDS: IRON SUCROSE COMPLEX 100 MG/5 ML ML IV SCH (18:42)
[2018-04-25 20:19] LABS: GAMMA GLUTAMYL TRANSPEPTIDASE 232 IU/L (7-32)
[2018-04-25] MEDS: DEXT 5%/0.45% NACL 1000ML 1,000 ML IV SCH (23:20)
[2018-04-26] VITALS: BP 128/60
[2018-04-26] MEDS: ALBUTEROL (0.083%) 2.5MG/3ML NEB HHN SCH ×4 (02:12→22:18)
[2018-04-26 04:00] VITALS: BP 131/59
[2018-04-26] MEDS: METOCLOPRAMIDE HCL 10MG/2ML VIAL IV SCH ×2 (05:59→12:25)
[2018-04-26] MEDS: OMEPRAZOLE 20MG CAPSULE EXTENDED RELEASE PO SCH (06:21)
[2018-04-26 08:00] VITALS: BP 145/73
[2018-04-26] MEDS: DILTIAZEM HCL 180MG CAPSULE CD 24HR PO SCH (09:21)
[2018-04-26] MEDS: POTASSIUM CHLORIDE 20MEQ/PACKET PO SCH ×3 (09:21→17:15)
[2018-04-26] MEDS: DEXT 5%/0.45% NACL 1000ML 1,000 ML IV SCH (09:21)
[2018-04-26] MEDS: FOLIC ACID 1MG TABLET PO SCH ×2 (09:21→17:38)
[2018-04-26] MEDS: ENOXAPARIN 30MG/0.3ML SYR SUBCUT SCH (09:22)
[2018-04-26 12:00] VITALS: BP 143/68
[2018-04-26 16:00] VITALS: BP_SYST 106; BP_SYST 148; BP_DIAS 67; BP_DIAS 74
[2018-04-26] MEDS: DIGOXIN 125MCG TABLET PO SCH (17:16)
[2018-04-26] MEDS: METOCLOPRAMIDE HCL 10MG TABLET PO SCH ×2 (17:16→21:13)
[2018-04-26] MEDS: IRON SUCROSE COMPLEX 100 MG/5 ML ML IV SCH (17:16)
[2018-04-26 20:00] VITALS: BP 148/64
[2018-04-27] VITALS: BP 146/91
[2018-04-27 04:00] VITALS: BP 150/73
[2018-04-27] MEDS: ALBUTEROL (0.083%) 2.5MG/3ML NEB HHN SCH ×3 (04:23→15:55)
[2018-04-27] MEDS: METOCLOPRAMIDE HCL 10MG TABLET PO SCH ×3 (06:21→17:20)
[2018-04-27] MEDS: OMEPRAZOLE 20MG CAPSULE EXTENDED RELEASE PO SCH (06:21)
[2018-04-27 08:00] VITALS: BP 162/67
[2018-04-27 08:24] LABS: A/G RATIO 0.5 (0.7-1.7); ALBUMIN 2.1 g/dL (2.9-4.4); ALPHA-1-GLOBULIN 0.4 g/dL (0.0-0.4); ALPHA-2-GLOBULIN 0.9 g/dL (0.4-1.0); BETA GLOBULIN 1.3 g/dL (0.7-1.3); GAMMA GLOBULINS 1.6 g/dL (0.4-1.8); GLOBULIN TOTAL 4.2 g/dL (2.2-3.9); M-SPIKE Not Observed g/dL (Not Observed); TOTAL PROTEIN SERUM 6.3 g/dL (6.0-8.5)
[2018-04-27] MEDS: ENOXAPARIN 30MG/0.3ML SYR SUBCUT SCH (09:00)
[2018-04-27] MEDS: POTASSIUM CHLORIDE 20MEQ/PACKET PO SCH ×3 (09:00→17:00)
[2018-04-27] MEDS: FOLIC ACID 1MG TABLET PO SCH ×2 (09:00)
[2018-04-27] MEDS: DILTIAZEM HCL 180MG CAPSULE CD 24HR PO SCH (09:00)
[2018-04-27] MEDS ORDERED: HYDROMORPHONE HCL/PF 2MG/ML CPJ IV NR (09:45)
[2018-04-27 12:00] VITALS: BP 142/92
[2018-04-27] MEDS ORDERED: BACTERIOSTATIC SODIUM CHLORIDE 0.9% 30ML VIAL IJ ONE (14:52)
[2018-04-27 16:00] VITALS: BP 129/59
[2018-04-27] MEDS ORDERED: MIDAZOLAM HCL 5 MG/5 ML VIAL IV PRN (16:33)
[2018-04-27] MEDS ORDERED: MIDAZOLAM HCL 5 MG/5 ML VIAL ONE (16:36)
[2018-04-27] MEDS ORDERED: FENTANYL CITRATE/PF 50MCG/ML 2ML VIAL ONE (16:37)
== END 2018-04-27 20:05 | disposition home or self-care (01) | DRG 392 ==
LOC: ER 10:52 → 6EST 15:46 → EDBEDREQ 15:49 → EDBEDREQSVC 15:49 → ENRESERV 20:58
PROVIDERS: ADMIT Internal Medicine; ATTEND Internal Medicine
PROC: 0DB68ZX Excision of Stomach, Via Natural or Artificial Opening Endoscopic, Diagnostic (ICD-10-PCS; principal; 2018-04-27)
DX: K57.92 Diverticulitis of intestine, part unspecified, without perforation or abscess without bleeding (principal); I47.1 Supraventricular tachycardia; E46 Unspecified protein-calorie malnutrition; K21.9 Gastro-esophageal reflux disease without esophagitis; K82.8 Other specified diseases of gallbladder; I87.2 Venous insufficiency (chronic) (peripheral); J45.909 Unspecified asthma, uncomplicated; G89.4 Chronic pain syndrome; E61.1 Iron deficiency; E87.6 Hypokalemia; M19.90 Unspecified osteoarthritis, unspecified site; D47.3 Essential (hemorrhagic) thrombocythemia; M54.5 Low back pain; R51 Headache; H91.90 Unspecified hearing loss, unspecified ear; I10 Essential (primary) hypertension; J44.9 Chronic obstructive pulmonary disease, unspecified; Z88.6 Allergy status to analgesic agent; Z88.0 Allergy status to penicillin; Z88.2 Allergy status to sulfonamides; Z88.8 Allergy status to other drugs, medicaments and biological substances; Z79.899 Other long term (current) drug therapy; Z68.20 Body mass index [BMI] 20.0-20.9, adult
CPT/HCPCS: 36415; 71045; 71250; 74018; 74176; 74181; 76705; 78227; 80048; 80076; 80162; 82150; 82378; 82550; 82607; 82728; 82746; 82962; 82977; 83540; 83550; 83615; 83735; 84100; 84134; 84155; 84165; 84207; 84443; 85044; 85651; 86301; 88305; 88312; 88313; 93005; 93970; 94640; 96365; 96366; 96368; 96372; 97162; 97530; 99285; A9537; C1893; J1170; J1650; J1956; J2250; J2405; J2765; J3010; J3490; J7030; J7040; J7611; J7626; J8597

== ENCOUNTER 2018-04-28 21:27 | Emergency (ER) | payer MEDICARE, BC ==
[~2018-04-28] VITALS: Ht 162.6 cm; Wt 52.0 kg
[2018-04-29] MEDS ORDERED: FENTANYL CITRATE/PF 50MCG/ML 2ML VIAL IV ONE (00:45)
[2018-04-29 03:22] VITALS: BP 138/79
== END 2018-04-29 03:23 | disposition home or self-care (01) ==
LOC: ER 21:27
DX: S46.912A Strain of unspecified muscle, fascia and tendon at shoulder and upper arm level, left arm, initial encounter (principal); I10 Essential (primary) hypertension; M19.90 Unspecified osteoarthritis, unspecified site; X50.3XXA Overexertion from repetitive movements, initial encounter; Y93.89 Activity, other specified; Y92.9 Unspecified place or not applicable; Z79.82 Long term (current) use of aspirin; Z88.0 Allergy status to penicillin; Z96.659 Presence of unspecified artificial knee joint
CPT/HCPCS: 73030; 96374; 99283; J3010

== ENCOUNTER 2019-03-29 13:16 | Inpatient (IN) | payer MEDICARE, BC ==
[~2019-03-29] VITALS: Ht 160 cm; Wt 55.8 kg
[~2019-03-29 13:16] MED LIST changes: -ASPI-1159 PO; +ASPI-1497 PO; +DIGO125T80 PO; -DIGO125T82 PO; -DILT180C3 PO; +DILT180C88 PO; -TORS100T11 PO; +TORS100T16 PO
[2019-03-29] MEDS ORDERED: ONDANSETRON HCL 4MG/2ML INJ IV STA (13:59)
[2019-03-29] MEDS ORDERED: SODIUM CHLORIDE 0.9% 1,000 ML IV ONE (13:59)
[2019-03-29] MEDS ORDERED: KETOROLAC 30MG/ML VIAL IV STA (13:59)
[2019-03-29 14:41] LABS: HEMATOCRIT. 25.7 % (36.0-48.0); HEMOGLOBIN. 8.8 g/dL (12.0-16.0); MEAN CORPUSCULAR HEMOGLOBIN 27.1 pg (28.0-32.0); MEAN CORPUSCULAR VOLUME 79.5 fL (81.0-99.0); MEAN PLATELET VOLUME 8.6 fl (7.4-10.4); PLATELET 283 x1000/uL (130-400); RED BLOOD CELL COUNT 3.24 mill/uL (4.2-5.4); RED CELL DISTRIBUTION WIDTH 16.5 % (11.6-14.6)
[2019-03-29 14:51] LABS: CHLORIDE 110 mEq/L (98-107)
[2019-03-29 14:58] LABS: PLATELET ESTIMATE NORMAL
[2019-03-29] MEDS ORDERED: POTASSIUM CHLORIDE 20MEQ TABLET SR PO ONE (15:45)
[2019-03-29] MEDS ORDERED: POTASSIUM CHLORIDE INJ 40 MEQ in DEXT 5% WATER 250 ML IV ONE (15:45)
[2019-03-29] MEDS ORDERED: ASPIRIN 325MG TABLET PO ONE (17:00)
[2019-03-29] MEDS ORDERED: LORAZEPAM 0.5MG TABLET PO PRN (17:15)
[2019-03-29 17:49] LABS: TOTAL IRON BINDING CAPACITY 90 ug/dL (250-450)
[2019-03-29 17:52] LABS: FOLIC ACID (FOLATE) SERUM 4.9 ng/mL (>5.38)
[2019-03-29] MEDS ORDERED: POTASSIUM CHLORIDE 20MEQ TABLET SR PO NR (18:00)
[2019-03-29] MEDS ORDERED: MAGNESIUM 1 G PREMIX 100 ML IV NR (19:30)
[2019-03-30] VITALS: BP 121/68
[2019-03-30] MEDS ORDERED: APIX2.5T MT (03:22)
[2019-03-30 04:00] VITALS: BP 130/67
[2019-03-30] MEDS: PANTOPRAZOLE 40MG DR TABLET PO SCH (06:54)
[2019-03-30 08:00] VITALS: BP 125/73
[2019-03-30] MEDS ORDERED: PNEUMOCOCCAL 23-VAL P-SAC VAC 0.5 ML IM ONE (08:00)
[2019-03-30 08:26] LABS: BASOPHILS % 1.1 % (0.0-2.0); EOSINOPHILS % 2.6 % (0.0-5.0); HEMATOCRIT. 21.7 % (36.0-48.0); HEMOGLOBIN. 7.3 g/dL (12.0-16.0); MEAN CORPUSCULAR HEMOGLOBIN 26.6 pg (28.0-32.0); MEAN CORPUSCULAR VOLUME 78.8 fL (81.0-99.0); MEAN PLATELET VOLUME 8.6 fl (7.4-10.4); NEUTROPHILS % 76.3 % (40.0-76.0); PLATELET 242 x1000/uL (130-400); RED BLOOD CELL COUNT 2.75 mill/uL (4.2-5.4); RED CELL DISTRIBUTION WIDTH 16.3 % (11.6-14.6)
[2019-03-30 08:50] LABS: CHLORIDE 114 mEq/L (98-107)
[2019-03-30] MEDS ORDERED: FUROSEMIDE 40MG/4ML VIAL IVP SCH ×2 (09:00→10:45)
[2019-03-30] MEDS ORDERED: FLUTICASONE/VILANTEROL 200-25 BLST.W.DEV ORI SCH (09:00)
[2019-03-30] MEDS: HEPARIN 5000 UNITS/ML VIAL SUBCUT SCH ×2 (09:00→21:00)
[2019-03-30] MEDS: ASPIRIN 81MG EC TABLET PO SCH ×2 (09:00→09:11)
[2019-03-30] MEDS: DILTIAZEM HCL 180MG CAPSULE CD 24HR PO SCH (09:11)
[2019-03-30] MEDS ORDERED: INFLUENZA VIRUS VACCINE(AFLURIA) 0.5ML SYR IM ONE (10:00)
[2019-03-30] MEDS ORDERED: POTASSIUM CHLORIDE 20MEQ TABLET SR PO SCH (11:00)
[2019-03-30 12:00] VITALS: BP 147/60
[2019-03-30] MEDS ORDERED: POTASSIUM CHLORIDE 20MEQ/PACKET PO SCH (13:00)
[2019-03-30] MEDS: FOLIC ACID 1MG TABLET PO SCH (13:07)
[2019-03-30] MEDS: TRAMADOL 50MG TABLET PO PRN (13:20)
[2019-03-30] MEDS: ONDANSETRON HCL 4MG/2ML INJ IV PRN (14:54)
[2019-03-30 16:00] VITALS: BP 107/68
[2019-03-30 16:13] LABS: INR 1.2; PROTHROMBIN TIME 13.4 sec (9.6-11.0)
[2019-03-30] MEDS: FUROSEMIDE 40MG/4ML VIAL IVP SCH (17:15)
[2019-03-30] MEDS: DIGOXIN 125MCG TABLET PO SCH (18:41)
[2019-03-30] MEDS: BUDESONIDE 0.5MG/2ML NEB HHN SCH (19:56)
[2019-03-30] MEDS: ALBUTEROL (0.083%) 2.5MG/3ML NEB HHN SCH (19:57)
[2019-03-30 20:00] VITALS: BP 97/47
[2019-03-31] VITALS (10 sets, daily range): BP systolic 93–118; BP diastolic 34–61
[2019-03-31] MEDS: ALBUTEROL (0.083%) 2.5MG/3ML NEB HHN SCH ×3 (02:19→20:57)
[2019-03-31] MEDS: TRAMADOL 50MG TABLET PO PRN (05:25)
[2019-03-31] MEDS: PANTOPRAZOLE 40MG DR TABLET PO SCH (05:25)
[2019-03-31] MEDS: FUROSEMIDE 40MG/4ML VIAL IVP SCH ×2 (07:15→17:15)
[2019-03-31 08:14] LABS: MEAN CORPUSCULAR HEMOGLOBIN 27.3 pg (28.0-32.0); MEAN CORPUSCULAR VOLUME 81.4 fL (81.0-99.0); MEAN PLATELET VOLUME 9.1 fl (7.4-10.4); PLATELET 234 x1000/uL (130-400); RED BLOOD CELL COUNT 2.49 mill/uL (4.2-5.4); RED CELL DISTRIBUTION WIDTH 16.9 % (11.6-14.6)
[2019-03-31] MEDS: BUDESONIDE 0.5MG/2ML NEB HHN SCH ×2 (08:25→20:57)
[2019-03-31] MEDS: DILTIAZEM HCL 180MG CAPSULE CD 24HR PO SCH (08:33)
[2019-03-31] MEDS: FOLIC ACID 1MG TABLET PO SCH (08:38)
[2019-03-31 08:40] LABS: HEMATOCRIT. 20.3 % (36.0-48.0); HEMOGLOBIN. 6.8 g/dL (12.0-16.0)
[2019-03-31] MEDS: HEPARIN 5000 UNITS/ML VIAL SUBCUT SCH (08:40)
[2019-03-31 11:45] LABS: PLATELET ESTIMATE NORMAL
[2019-03-31] MEDS ORDERED: ALBUMIN HUMAN 25GM/500ML (5%) IV SCH (14:00)
[2019-03-31 16:17] LABS: T4 FREE 1.4 ng/dL (0.76-1.46)
[2019-03-31] MEDS: DIGOXIN 125MCG TABLET PO SCH (18:09)
[2019-03-31 21:55] LABS: HEMATOCRIT 27.1 % (36.0-48.0); HEMOGLOBIN 9.3 g/dL (12.0-16.0)
[2019-03-31 22:04] LABS: INR 1.2; PROTHROMBIN TIME 12.7 sec (9.6-11.0)
[2019-04-01] VITALS: BP 107/51
[2019-04-01] MEDS: ALBUTEROL (0.083%) 2.5MG/3ML NEB HHN SCH ×3 (01:11→20:42)
[2019-04-01 04:00] VITALS: BP 97/63
[2019-04-01] MEDS: PANTOPRAZOLE 40MG DR TABLET PO SCH (05:54)
[2019-04-01 07:58] LABS: HEMATOCRIT. 27.1 % (36.0-48.0); HEMOGLOBIN. 9.2 g/dL (12.0-16.0); MEAN CORPUSCULAR HEMOGLOBIN 27.8 pg (28.0-32.0); MEAN CORPUSCULAR VOLUME 82.1 fL (81.0-99.0); MEAN PLATELET VOLUME 8.1 fl (7.4-10.4); PLATELET 211 x1000/uL (130-400); RED CELL DISTRIBUTION WIDTH 17.2 % (11.6-14.6)
[2019-04-01 08:00] VITALS: BP 114/57
[2019-04-01 08:23] LABS: INR 1.1; PROTHROMBIN TIME 12.2 sec (9.6-11.0)
[2019-04-01] MEDS ORDERED: LIDOCAINE HCL 1% 20ML VIAL (Pyxis) INJ ONE (08:48)
[2019-04-01] MEDS ORDERED: SODIUM BICARBONATE 4% (2.4MEQ) 5ML VIAL IV ONE (08:49)
[2019-04-01] MEDS: BUDESONIDE 0.5MG/2ML NEB HHN SCH ×2 (10:00→20:42)
[2019-04-01] MEDS ORDERED: DEXT 5%/0.9% NACL 500 ML IV ONE (10:15)
[2019-04-01] MEDS ORDERED: DEXTROSE 50% WATER 50ML SYRINGE IV SCH (10:15)
[2019-04-01 10:22] LABS: PLATELET ESTIMATE NORMAL
[2019-04-01] MEDS ORDERED: FUROSEMIDE 40MG/4ML VIAL IVP SCH (10:45)
[2019-04-01] MEDS ORDERED: METOLAZONE 2.5MG TABLET PO SCH (10:45)
[2019-04-01] MEDS: FOLIC ACID 1MG TABLET PO SCH (11:18)
[2019-04-01] MEDS: DILTIAZEM HCL 180MG CAPSULE CD 24HR PO SCH (11:19)
[2019-04-01 12:00] VITALS: BP 141/69
[2019-04-01] MEDS: SPIRONOLACTONE 25MG TABLET PO SCH (13:43)
[2019-04-01] MEDS: FUROSEMIDE 40MG/4ML VIAL IVP SCH ×2 (13:43→17:59)
[2019-04-01] MEDS ORDERED: DEXTROSE 5% WATER 1,000 ML IV SCH (14:00)
[2019-04-01 16:00] VITALS: BP 113/68
[2019-04-01] MEDS: DIGOXIN 125MCG TABLET PO SCH (17:59)
[2019-04-01 20:00] VITALS: BP 125/57
[2019-04-01] MEDS: BLOOD SUGAR DIAGNOSTIC STRIP TEST SCH (21:00)
[2019-04-01] MEDS: DEXTROSE 50% WATER 50ML SYRINGE IV PRN (21:21)
[2019-04-01] MEDS: DEXT 10% WATER 1,000 ML IV SCH (22:46)
[2019-04-02] VITALS: BP 112/34
[2019-04-02 04:00] VITALS: BP 114/61
[2019-04-02] MEDS: ONDANSETRON HCL 4MG/2ML INJ IV PRN ×2 (05:37→21:48)
[2019-04-02] MEDS: BLOOD SUGAR DIAGNOSTIC STRIP TEST SCH ×4 (05:48→20:41)
[2019-04-02] MEDS: DEXT 10% WATER 1,000 ML IV SCH (06:37)
[2019-04-02] MEDS: FUROSEMIDE 40MG/4ML VIAL IVP SCH (06:50)
[2019-04-02] MEDS: PANTOPRAZOLE SODIUM 40 MG/VIAL IV SCH (06:50)
[2019-04-02] MEDS: ALBUTEROL (0.083%) 2.5MG/3ML NEB HHN SCH ×4 (07:44→19:57)
[2019-04-02] MEDS: BUDESONIDE 0.5MG/2ML NEB HHN SCH (07:44)
[2019-04-02 08:00] VITALS: BP 101/43
[2019-04-02] MEDS: SPIRONOLACTONE 25MG TABLET PO SCH (09:00)
[2019-04-02] MEDS: DILTIAZEM HCL 180MG CAPSULE CD 24HR PO SCH (09:00)
[2019-04-02 12:00] VITALS: BP 111/35
[2019-04-02] MEDS: FOLIC ACID 1MG TABLET PO SCH (13:41)
[2019-04-02 16:00] VITALS: BP 106/39
[2019-04-02] MEDS: ACETAMINOPHEN 325MG TABLET PO PRN (16:20)
[2019-04-02] MEDS: FUROSEMIDE 100MG/10ML VIAL IVP SCH (16:21)
[2019-04-02] MEDS: DIGOXIN 125MCG TABLET PO SCH (17:12)
[2019-04-02 20:00] VITALS: BP 95/43
[2019-04-02 20:55] LABS: HEMATOCRIT. 26.9 % (36.0-48.0); HEMOGLOBIN. 9.3 g/dL (12.0-16.0); MEAN CORPUSCULAR HEMOGLOBIN 28.2 pg (28.0-32.0); MEAN CORPUSCULAR VOLUME 81.5 fL (81.0-99.0); PLATELET 190 x1000/uL (130-400); RED CELL DISTRIBUTION WIDTH 17.6 % (11.6-14.6)
[2019-04-02 21:10] LABS: CHLORIDE 108 mEq/L (98-107)
[2019-04-02 22:55] LABS: PLATELET ESTIMATE NORMAL
[2019-04-03] VITALS: BP 114/56
[2019-04-03] MEDS: ALBUTEROL (0.083%) 2.5MG/3ML NEB HHN SCH ×4 (01:50→21:00)
[2019-04-03 02:25] LABS: CLARITY URINE CLEAR (CLEAR); COLOR URINE YELLOW (YELLOW); KETONES URINE NEGATIVE (NEGATIVE); LEUKOCYTE ESTERASE URINE 2+ (NEGATIVE); NITRITE URINE NEGATIVE (NEGATIVE); OCCULT BLOOD URINE NEGATIVE (NEGATIVE); PROTEIN URINE NEGATIVE (NEGATIVE); SPECIFIC GRAVITY URINE 1.006 (1.005-1.030); UROBILINOGEN URINE 0.2 E.U./dL (0.2-1.0)
[2019-04-03] MEDS: MIDODRINE HCL 5MG TABLET PO SCH ×4 (02:33→19:07)
[2019-04-03 04:00] VITALS: BP 97/59
[2019-04-03] MEDS: BLOOD SUGAR DIAGNOSTIC STRIP TEST SCH ×4 (06:16→21:08)
[2019-04-03] MEDS: FUROSEMIDE 100MG/10ML VIAL IVP SCH (06:33)
[2019-04-03 08:00] VITALS: BP 94/44
[2019-04-03] MEDS: PANTOPRAZOLE SODIUM 40 MG/VIAL IV SCH (10:08)
[2019-04-03] MEDS: SPIRONOLACTONE 25MG TABLET PO SCH (10:08)
[2019-04-03] MEDS: DEXT 10% WATER 1,000 ML IV SCH ×2 (10:08→16:15)
[2019-04-03] MEDS: FOLIC ACID 1MG TABLET PO SCH (10:09)
[2019-04-03 12:00] VITALS: BP 96/37
[2019-04-03] MEDS ORDERED: SODIUM CHLORIDE 0.9% 250 ML IV ONE (12:00)
[2019-04-03 16:00] VITALS: BP 111/33
[2019-04-03] MEDS: ACETAMINOPHEN 325MG TABLET PO PRN (16:16)
[2019-04-03] MEDS: LACTULOSE 20G/30ML UDC PO SCH ×2 (16:16→21:08)
[2019-04-03 16:20] LABS: BASOPHILS % 0.7 % (0.0-2.0); EOSINOPHILS % 1.8 % (0.0-5.0); HEMATOCRIT. 21.9 % (36.0-48.0); HEMOGLOBIN. 7.4 g/dL (12.0-16.0); MEAN CORPUSCULAR HEMOGLOBIN 27.6 pg (28.0-32.0); MEAN CORPUSCULAR VOLUME 81.2 fL (81.0-99.0); MEAN PLATELET VOLUME 8.6 fl (7.4-10.4); MONOCYTES % 7.4 % (2.0-8.0); NEUTROPHILS % 69.1 % (40.0-76.0); PLATELET 170 x1000/uL (130-400); RED BLOOD CELL COUNT 2.69 mill/uL (4.2-5.4); RED CELL DISTRIBUTION WIDTH 17.4 % (11.6-14.6)
[2019-04-03] MEDS: DIGOXIN 125MCG TABLET PO SCH (19:07)
[2019-04-03 20:00] VITALS: BP 151/62
[2019-04-04] VITALS: BP 114/45
[2019-04-04] MEDS: DEXT 10% WATER 1,000 ML IV SCH (00:58)
[2019-04-04 04:00] VITALS: BP 110/63
[2019-04-04] MEDS: LACTULOSE 20G/30ML UDC PO SCH ×3 (05:20→17:00)
[2019-04-04] MEDS: BLOOD SUGAR DIAGNOSTIC STRIP TEST SCH ×4 (05:20→22:00)
[2019-04-04] MEDS: DEXTROSE 50% WATER 50ML SYRINGE IV PRN ×4 (06:30→22:32)
[2019-04-04 08:00] VITALS: BP 109/45
[2019-04-04] MEDS: ALBUTEROL (0.083%) 2.5MG/3ML NEB HHN SCH ×3 (08:03→22:08)
[2019-04-04 08:33] LABS: CHLORIDE 107 mEq/L (98-107)
[2019-04-04] MEDS: PANTOPRAZOLE SODIUM 40 MG/VIAL IV SCH (08:41)
[2019-04-04] MEDS: MIDODRINE HCL 5MG TABLET PO SCH ×3 (08:42→16:48)
[2019-04-04] MEDS: FOLIC ACID 1MG TABLET PO SCH (08:42)
[2019-04-04 12:00] VITALS: BP 122/54
[2019-04-04 12:22] LABS: BASOPHILS % 0.7 % (0.0-2.0); HEMATOCRIT. 25.5 % (36.0-48.0); HEMOGLOBIN. 8.6 g/dL (12.0-16.0); LYMPHOCYTES % 27.1 % (20.0-50.0); MEAN CORPUSCULAR HEMOGLOBIN 27.7 pg (28.0-32.0); MEAN CORPUSCULAR VOLUME 82.6 fL (81.0-99.0); MEAN PLATELET VOLUME 8.5 fl (7.4-10.4); MONOCYTES % 9.1 % (2.0-8.0); NEUTROPHILS % 60.1 % (40.0-76.0); PLATELET 172 x1000/uL (130-400); RED BLOOD CELL COUNT 3.08 mill/uL (4.2-5.4); RED CELL DISTRIBUTION WIDTH 17.8 % (11.6-14.6)
[2019-04-04 16:00] VITALS: BP 128/45
[2019-04-04] MEDS: DIGOXIN 125MCG TABLET PO SCH (16:48)
[2019-04-04 20:00] VITALS: BP 114/48
[2019-04-04] MEDS ORDERED: SODIUM CHLORIDE 0.9% 1,000 ML IV SCH (23:30)
[2019-04-05] VITALS: BP 121/46
[2019-04-05] MEDS: ALBUTEROL (0.083%) 2.5MG/3ML NEB HHN SCH ×4 (02:20→20:51)
[2019-04-05 04:00] VITALS: BP 111/34
[2019-04-05] MEDS: DEXTROSE 50% WATER 50ML SYRINGE IV PRN ×2 (05:34→17:06)
[2019-04-05 08:00] VITALS: BP 112/40
[2019-04-05] MEDS: FOLIC ACID 1MG TABLET PO SCH (09:34)
[2019-04-05] MEDS: PANTOPRAZOLE SODIUM 40 MG/VIAL IV SCH (09:35)
[2019-04-05] MEDS: MIDODRINE HCL 5MG TABLET PO SCH ×3 (09:35→17:20)
[2019-04-05] MEDS: DEXT 10% WATER 1,000 ML IV SCH ×2 (09:41→17:14)
[2019-04-05 10:40] LABS: BASOPHILS % 1.3 % (0.0-2.0); EOSINOPHILS % 2.3 % (0.0-5.0); HEMATOCRIT. 21.8 % (36.0-48.0); HEMOGLOBIN. 7.7 g/dL (12.0-16.0); LYMPHOCYTES % 16.6 % (20.0-50.0); MEAN CORPUSCULAR HEMOGLOBIN 28.4 pg (28.0-32.0); MEAN CORPUSCULAR VOLUME 80.5 fL (81.0-99.0); NEUTROPHILS % 71.8 % (40.0-76.0); PLATELET 159 x1000/uL (130-400); RED BLOOD CELL COUNT 2.71 mill/uL (4.2-5.4); RED CELL DISTRIBUTION WIDTH 17.2 % (11.6-14.6)
[2019-04-05] MEDS: BLOOD SUGAR DIAGNOSTIC STRIP TEST SCH ×3 (11:33→20:50)
[2019-04-05 12:00] VITALS: BP 140/38
[2019-04-05] MEDS: FUROSEMIDE 40MG/4ML VIAL IVP SCH (13:02)
[2019-04-05] MEDS ORDERED: MAGNESIUM 2 G PREMIX 50 ML IV NR (15:00)
[2019-04-05 16:00] VITALS: BP 118/40
[2019-04-05] MEDS: MAGNESIUM OXIDE 400MG TABLET PO SCH (16:29)
[2019-04-05] MEDS: LACTULOSE 20G/30ML UDC PO SCH (17:19)
[2019-04-05] MEDS: DIGOXIN 125MCG TABLET PO SCH (17:19)
[2019-04-05] MEDS ORDERED: DILTIAZEM HCL 5MG/ML 5ML VIAL IV NR (18:15)
[2019-04-05] MEDS ORDERED: DILTIAZEM HCL 5MG/ML 5ML VIAL IV ONE (18:17)
[2019-04-05 20:00] VITALS: BP 99/58
[2019-04-06] VITALS: BP 143/47
[2019-04-06] MEDS: ALBUTEROL (0.083%) 2.5MG/3ML NEB HHN SCH ×4 (02:12→20:00)
[2019-04-06] MEDS: DEXT 10% WATER 1,000 ML IV SCH ×2 (03:25→15:13)
[2019-04-06] MEDS: DEXTROSE 50% WATER 50ML SYRINGE IV PRN ×2 (03:55→21:20)
[2019-04-06 04:00] VITALS: BP 132/32
[2019-04-06] MEDS: BLOOD SUGAR DIAGNOSTIC STRIP TEST SCH ×4 (06:52→20:28)
[2019-04-06 08:00] VITALS: BP 116/42
[2019-04-06] MEDS: ACETAMINOPHEN 325MG TABLET PO PRN (08:46)
[2019-04-06] MEDS: MIDODRINE HCL 5MG TABLET PO SCH ×3 (08:46→17:00)
[2019-04-06] MEDS: FUROSEMIDE 40MG/4ML VIAL IVP SCH ×2 (09:00→09:49)
[2019-04-06] MEDS: MAGNESIUM OXIDE 400MG TABLET PO SCH (09:00)
[2019-04-06] MEDS: FOLIC ACID 1MG TABLET PO SCH (09:00)
[2019-04-06] MEDS: PANTOPRAZOLE SODIUM 40 MG/VIAL IV SCH (09:48)
[2019-04-06] MEDS ORDERED: APIXABAN 2.5 MG TABLET PO SCH (11:15)
[2019-04-06 12:00] VITALS: BP 147/52
[2019-04-06] MEDS: BUMETANIDE 1MG/4ML VIAL IV SCH ×2 (12:19→17:00)
[2019-04-06] MEDS: DILTIAZEM HCL 60MG TABLET PO SCH ×2 (12:19→18:00)
[2019-04-06 13:29] LABS: HEMATOCRIT. 21.5 % (36.0-48.0); HEMOGLOBIN. 7.4 g/dL (12.0-16.0); MEAN CORPUSCULAR HEMOGLOBIN 27.4 pg (28.0-32.0); MEAN CORPUSCULAR VOLUME 80.1 fL (81.0-99.0); MEAN PLATELET VOLUME 8.5 fl (7.4-10.4); PLATELET 133 x1000/uL (130-400); RED BLOOD CELL COUNT 2.68 mill/uL (4.2-5.4); RED CELL DISTRIBUTION WIDTH 17.6 % (11.6-14.6)
[2019-04-06 13:30] LABS: INR 1.5; PARTIAL THROMBOPLASTIN TIME 52.4 sec (23.4-31.0); PROTHROMBIN TIME 16.2 sec (9.6-11.0)
[2019-04-06] MEDS ORDERED: BACTERIOSTATIC SODIUM CHLORIDE 0.9% 30ML VIAL IJ ONE (14:11)
[2019-04-06] MEDS ORDERED: POTASSIUM CHLORIDE 20MEQ/PACKET PO NR (14:30)
[2019-04-06 16:00] VITALS: BP 112/58
[2019-04-06] MEDS ORDERED: MAGNESIUM 2 G PREMIX 50 ML IV NR (16:00)
[2019-04-06] MEDS: LACTULOSE 20G/30ML UDC PO SCH (17:00)
[2019-04-06 17:14] LABS: PLATELET ESTIMATE NORMAL
[2019-04-06] MEDS: DIGOXIN 125MCG TABLET PO SCH (18:00)
[2019-04-06] MEDS ORDERED: MIDAZOLAM HCL 5 MG/5 ML VIAL ONE (18:14)
[2019-04-06] MEDS ORDERED: FENTANYL CITRATE/PF 50MCG/ML 2ML VIAL ONE (18:14)
[2019-04-06] MEDS ORDERED: MIDAZOLAM HCL 2 MG/2 ML VIAL IV PRN (18:25)
[2019-04-06 20:00] VITALS: BP 118/39
[2019-04-07] VITALS (27 sets, daily range): BP systolic 73–146; BP diastolic 29–61
[2019-04-07] MEDS: DILTIAZEM HCL 60MG TABLET PO SCH ×2 (01:17→06:53)
[2019-04-07] MEDS: DEXT 10% WATER 1,000 ML IV SCH ×2 (01:24→09:14)
[2019-04-07] MEDS: ALBUTEROL (0.083%) 2.5MG/3ML NEB HHN SCH ×3 (02:20→14:49)
[2019-04-07] MEDS: BLOOD SUGAR DIAGNOSTIC STRIP TEST SCH ×4 (06:49→21:11)
[2019-04-07] MEDS: FOLIC ACID 1MG TABLET PO SCH (09:02)
[2019-04-07] MEDS: MAGNESIUM OXIDE 400MG TABLET PO SCH (09:02)
[2019-04-07] MEDS: BUMETANIDE 1MG/4ML VIAL IV SCH ×2 (09:02→17:00)
[2019-04-07] MEDS: PANTOPRAZOLE SODIUM 40 MG/VIAL IV SCH (09:02)
[2019-04-07] MEDS: MIDODRINE HCL 5MG TABLET PO SCH ×3 (09:03→17:00)
[2019-04-07] MEDS: ACETAMINOPHEN 325MG TABLET PO PRN (10:29)
[2019-04-07] MEDS: DILTIAZEM HCL 30MG TABLET PO SCH ×2 (12:00→18:00)
[2019-04-07 13:20] LABS: HEMATOCRIT. 22.5 % (36.0-48.0); HEMOGLOBIN. 7.6 g/dL (12.0-16.0); MEAN CORPUSCULAR HEMOGLOBIN 27.7 pg (28.0-32.0); MEAN CORPUSCULAR VOLUME 82.5 fL (81.0-99.0); MEAN PLATELET VOLUME 8.5 fl (7.4-10.4); PLATELET 96 x1000/uL (130-400); RED BLOOD CELL COUNT 2.73 mill/uL (4.2-5.4); RED CELL DISTRIBUTION WIDTH 17.6 % (11.6-14.6)
[2019-04-07 13:28] LABS: INR 1.6; PROTHROMBIN TIME 16.9 sec (9.6-11.0)
[2019-04-07 13:28] LABS: BG BASE EXCESS -8.5 mmol/L (-2.0-2.0); BG CARBOXYHEMOGLOBIN 0.8 % (0.5-1.5); BG DEOXYHEMOGLOBIN 10.8 % (0.0-5.0); BG FRACTION INSPIRED OXYGEN 100; BG HCO3 ACT 19.9 mmol/L (22.0-26.0); BG METHEMOGLOBIN 0.4 % (0.0-1.5); BG OXYGEN SATURATION 89.1 % (92.0-98.5); BG PCO2 58.2 mmHg (35.0-45.0); BG PH 7.152 (7.350-7.450); BG PO2 70.7 mmHg (75.0-100.0); BG SAMPLE SITE RIGHT BRACHIAL; BG TOTAL HEMOGLOBIN 7.6 g/dL (12.0-18.0); BG VENT MODE MASK - NRB
[2019-04-07 14:01] LABS: PLATELET ESTIMATE DECREASED
[2019-04-07] MEDS: DOBUTAMINE 250MG PREMIX 250 ML IV SCH ×2 (16:01→20:34)
[2019-04-07 16:13] LABS: BG CARBOXYHEMOGLOBIN 0.7 % (0.5-1.5); BG DEOXYHEMOGLOBIN 10.6 % (0.0-5.0); BG HCO3 ACT 20.3 mmol/L (22.0-26.0); BG METHEMOGLOBIN 0.4 % (0.0-1.5); BG OXYGEN SATURATION 89.3 % (92.0-98.5); BG OXYHEMOGLOBIN 88.3 % (94.0-97.0); BG PCO2 50.8 mmHg (35.0-45.0); BG PO2 70.1 mmHg (75.0-100.0); BG SAMPLE SITE RIGHT BRACHIAL; BG TOTAL HEMOGLOBIN 7.3 g/dL (12.0-18.0); BG VENT MODE MASK - NRB
[2019-04-07] MEDS: DEXTROSE 50% WATER 50ML SYRINGE IV PRN ×2 (16:34→21:11)
[2019-04-07] MEDS: LACTULOSE 20G/30ML UDC PO SCH (17:00)
[2019-04-07] MEDS ORDERED: FENTANYL CITRATE/PF 500 MCG in SODIUM CHLORIDE 0.9% 40 ML IV PRN (17:00)
[2019-04-07] MEDS ORDERED: IPRATROPIUM/ALBUTEROL 0.5-3(2.5)MG/3ML NEB HHN PRN (17:00)
[2019-04-07] MEDS ORDERED: ETOMIDATE 2MG/ML 10ML VIAL IV ONE (17:21)
[2019-04-07] MEDS ORDERED: SODIUM CHLORIDE 0.9% 10ML VIAL ONE (17:21)
[2019-04-07] MEDS ORDERED: VECURONIUM BROMIDE 10 MG/VIAL IV ONE (17:21)
[2019-04-07] MEDS: DIGOXIN 125MCG TABLET PO SCH (18:00)
[2019-04-07 18:08] LABS: BG BASE EXCESS -7.4 mmol/L (-2.0-2.0); BG CARBOXYHEMOGLOBIN 0.8 % (0.5-1.5); BG DEOXYHEMOGLOBIN 0.4 % (0.0-5.0); BG HCO3 ACT 18.9 mmol/L (22.0-26.0); BG METHEMOGLOBIN 0.5 % (0.0-1.5); BG OXYGEN SATURATION 99.6 % (92.0-98.5); BG OXYHEMOGLOBIN 98.3 % (94.0-97.0); BG PCO2 42.3 mmHg (35.0-45.0); BG PH 7.268 (7.350-7.450); BG PO2 358.2 mmHg (75.0-100.0); BG SAMPLE SITE RIGHT BRACHIAL; BG TIDAL VOLUME(mL) 450 mL; BG TOTAL HEMOGLOBIN 6.2 g/dL (12.0-18.0); BG VENT MODE VENT - A/C; BG VENT RATE 18 set
[2019-04-07] MEDS ORDERED: SODIUM BICARBONATE 8.4% 1 MEQ/ML 50ML SYR IV SCH (18:15)
[2019-04-07] MEDS: NOREPINEPHRINE 16 MG in DEXT 5% WATER 234 ML IV PRN (19:06)
[2019-04-07] MEDS: METRONIDAZOLE 500 MG PREMIX 100 ML IV SCH (19:44)
[2019-04-07] MEDS: AZTREONAM 1 G in DEXTROSE 5% WATER 50 ML IV SCH (19:45)
[2019-04-07] MEDS: IPRATROPIUM/ALBUTEROL 0.5-3(2.5)MG/3ML NEB HHN SCH (20:47)
[2019-04-07] MEDS: PHENYLEPHRINE 80 MG in DEXT 5% WATER 492 ML IV PRN (22:38)
[2019-04-08] VITALS (102 sets, daily range): BP systolic 67–156; BP diastolic 29–107
[2019-04-08] MEDS: IPRATROPIUM/ALBUTEROL 0.5-3(2.5)MG/3ML NEB HHN SCH ×4 (01:39→19:56)
[2019-04-08] MEDS: METRONIDAZOLE 500 MG PREMIX 100 ML IV SCH ×3 (02:40→19:40)
[2019-04-08] MEDS: DOBUTAMINE 250MG PREMIX 250 ML IV SCH ×2 (04:22→20:49)
[2019-04-08] MEDS: NOREPINEPHRINE 16 MG in DEXT 5% WATER 234 ML IV PRN ×2 (04:43→23:24)
[2019-04-08] MEDS: DILTIAZEM HCL 30MG TABLET PO SCH ×4 (06:00→17:12)
[2019-04-08] MEDS: MIDAZOLAM HCL 50 MG in DEXTROSE 5% WATER 40 ML IV PRN (07:06)
[2019-04-08 07:20] LABS: MEAN CORPUSCULAR HEMOGLOBIN 27.6 pg (28.0-32.0); MEAN CORPUSCULAR VOLUME 81.6 fL (81.0-99.0); RED BLOOD CELL COUNT 2.34 mill/uL (4.2-5.4)
[2019-04-08 07:33] LABS: HEMATOCRIT. 19.1 % (36.0-48.0); HEMOGLOBIN. 6.5 g/dL (12.0-16.0)
[2019-04-08] MEDS: PHENYLEPHRINE 80 MG in DEXT 5% WATER 492 ML IV PRN ×3 (07:58→22:58)
[2019-04-08] MEDS: PANTOPRAZOLE SODIUM 40 MG/VIAL IV SCH (08:02)
[2019-04-08] MEDS: BUMETANIDE 1MG/4ML VIAL IV SCH ×2 (08:02→17:12)
[2019-04-08] MEDS: MIDODRINE HCL 5MG TABLET PO SCH ×3 (08:03→17:12)
[2019-04-08] MEDS: MAGNESIUM OXIDE 400MG TABLET PO SCH (08:03)
[2019-04-08] MEDS: FOLIC ACID 1MG TABLET PO SCH (08:07)
[2019-04-08] MEDS: BLOOD SUGAR DIAGNOSTIC STRIP TEST SCH ×3 (08:39→17:32)
[2019-04-08 09:01] LABS: BG CARBOXYHEMOGLOBIN 0.9 % (0.5-1.5); BG DEOXYHEMOGLOBIN 11.6 % (0.0-5.0); BG FRACTION INSPIRED OXYGEN 50; BG HCO3 ACT 18.3 mmol/L (22.0-26.0); BG METHEMOGLOBIN 0.2 % (0.0-1.5); BG OXYGEN SATURATION 88.3 % (92.0-98.5); BG OXYHEMOGLOBIN 87.3 % (94.0-97.0); BG PCO2 35.9 mmHg (35.0-45.0); BG PH 7.326 (7.350-7.450); BG SAMPLE SITE RIGHT BRACHIAL; BG TIDAL VOLUME(mL) 450 mL; BG TOTAL HEMOGLOBIN 6.3 g/dL (12.0-18.0); BG VENT MODE VENT - A/C; BG VENT RATE 18 set
[2019-04-08] MEDS: AZTREONAM 1 G in DEXTROSE 5% WATER 50 ML IV SCH ×2 (09:23→19:40)
[2019-04-08] MEDS ORDERED: LIDOCAINE HCL 1% 20ML VIAL (Pyxis) INJ ONE (09:33)
[2019-04-08] MEDS: VASOPRESSIN 10 UNIT in SODIUM CHLORIDE 0.9% 99.5 ML IV PRN ×3 (09:42→20:38)
[2019-04-08 10:38] LABS: MEAN PLATELET VOLUME 9.5 fl (7.4-10.4); PLATELET 62 x1000/uL (130-400); PLATELET ESTIMATE DECREASED
[2019-04-08] MEDS ORDERED: SODIUM CHLORIDE 0.9% 1,000 ML IV SCH (11:45)
[2019-04-08] MEDS: DEXTROSE 50% WATER 50ML SYRINGE IV NR ×2 (12:50→17:54)
[2019-04-08] MEDS ORDERED: MAGNESIUM 2 G PREMIX 50 ML IV NR (13:00)
[2019-04-08] MEDS ORDERED: VANCOMYCIN 1 G PREMIX 200 ML IV SCH (13:00)
[2019-04-08] MEDS: ALBUMIN HUMAN 12.5GM/50ML (25%) IV SCH ×2 (13:39→20:41)
[2019-04-08] MEDS: LACTULOSE 20G/30ML UDC PO SCH (17:12)
[2019-04-08] MEDS: DIGOXIN 125MCG TABLET PO SCH (17:13)
[2019-04-09] VITALS (75 sets, daily range): BP systolic 0–130; BP diastolic 0–54
[2019-04-09] MEDS ORDERED: FILGRASTIM-TBO 300 MCG/0.5 ML SYRINGE SQ SCH
[2019-04-09] MEDS: ALBUMIN HUMAN 12.5GM/50ML (25%) IV SCH ×2 (00:34→06:01)
[2019-04-09] MEDS: DEXTROSE 50% WATER 50ML SYRINGE IV PRN (00:35)
[2019-04-09] MEDS: BLOOD SUGAR DIAGNOSTIC STRIP TEST SCH ×4 (00:35→17:38)
[2019-04-09] MEDS: DILTIAZEM HCL 30MG TABLET PO SCH ×5 (00:35→17:37)
[2019-04-09] MEDS ORDERED: DEXTROSE 50% WATER 50ML SYRINGE IV PRN (01:30)
[2019-04-09] MEDS: VASOPRESSIN 10 UNIT in SODIUM CHLORIDE 0.9% 99.5 ML IV PRN ×2 (03:47→09:50)
[2019-04-09] MEDS: METRONIDAZOLE 500 MG PREMIX 100 ML IV SCH ×2 (03:48→10:41)
[2019-04-09] MEDS: DOBUTAMINE 250MG PREMIX 250 ML IV SCH ×2 (03:49→07:52)
[2019-04-09 04:43] LABS: HEMATOCRIT. 28.6 % (36.0-48.0); HEMOGLOBIN. 9.9 g/dL (12.0-16.0); MEAN CORPUSCULAR HEMOGLOBIN 30.2 pg (28.0-32.0); MEAN PLATELET VOLUME 10.1 fl (7.4-10.4); RED BLOOD CELL COUNT 3.29 mill/uL (4.2-5.4); RED CELL DISTRIBUTION WIDTH 18.3 % (11.6-14.6)
[2019-04-09 05:16] LABS: PLATELET 40 x1000/uL (130-400)
[2019-04-09] MEDS: AZTREONAM 1 G in DEXTROSE 5% WATER 50 ML IV SCH (06:07)
[2019-04-09] MEDS: PHENYLEPHRINE 80 MG in DEXT 5% WATER 492 ML IV PRN ×2 (06:38→14:21)
[2019-04-09] MEDS: MIDAZOLAM HCL 50 MG in DEXTROSE 5% WATER 40 ML IV PRN (06:42)
[2019-04-09] MEDS: DEXT 5%/0.9% NACL 1,000 ML IV SCH ×2 (06:49→16:00)
[2019-04-09] MEDS: PANTOPRAZOLE SODIUM 40 MG/VIAL IV SCH (07:51)
[2019-04-09] MEDS: BUMETANIDE 1MG/4ML VIAL IV SCH ×2 (07:51→17:00)
[2019-04-09] MEDS: MAGNESIUM OXIDE 400MG TABLET PO SCH (07:51)
[2019-04-09] MEDS: MIDODRINE HCL 5MG TABLET PO SCH ×3 (07:52→17:00)
[2019-04-09] MEDS: NOREPINEPHRINE 16 MG in DEXT 5% WATER 234 ML IV PRN (07:52)
[2019-04-09] MEDS: FOLIC ACID 1MG TABLET PO SCH (07:52)
[2019-04-09] MEDS ORDERED: NOREPINEPHRINE 32 MG in DEXT 5% WATER 468 ML IV PRN (08:00)
[2019-04-09] MEDS: IPRATROPIUM/ALBUTEROL 0.5-3(2.5)MG/3ML NEB HHN SCH ×2 (08:46→14:53)
[2019-04-09 09:36] LABS: BG BASE EXCESS -14.6 mmol/L (-2.0-2.0); BG CARBOXYHEMOGLOBIN 1.1 % (0.5-1.5); BG DEOXYHEMOGLOBIN 26.6 % (0.0-5.0); BG FRACTION INSPIRED OXYGEN 60; BG HCO3 ACT 14.6 mmol/L (22.0-26.0); BG METHEMOGLOBIN 0.8 % (0.0-1.5); BG OXYGEN SATURATION 72.9 % (92.0-98.5); BG OXYHEMOGLOBIN 71.5 % (94.0-97.0); BG PCO2 50.7 mmHg (35.0-45.0); BG PH 7.078 (7.350-7.450); BG PO2 43.8 mmHg (75.0-100.0); BG SAMPLE SITE RIGHT BRACHIAL; BG TIDAL VOLUME(mL) 450 mL; BG TOTAL HEMOGLOBIN 8.8 g/dL (12.0-18.0); BG VENT MODE VENT - A/C; BG VENT RATE 18 set
[2019-04-09] MEDS ORDERED: SODIUM BICARBONATE 8.4% 1 MEQ/ML 50ML SYR IV NR (10:45)
[2019-04-09] MEDS ORDERED: FENTANYL CITRATE/PF 500 MCG in SODIUM CHLORIDE 0.9% 40 ML IV PRN (11:45)
[2019-04-09 12:35] LABS: PLATELET ESTIMATE MARKEDLY DECREASED
[2019-04-09] MEDS ORDERED: VANCOMYCIN 750 MG PREMIX 150 ML IV SCH (13:00)
[2019-04-09] MEDS: LACTULOSE 20G/30ML UDC PO SCH (17:00)
[2019-04-09] MEDS: DIGOXIN 125MCG TABLET PO SCH (17:38)
[2019-04-10 09:10] LABS: IMMUNOGLOBULIN A 589 mg/dL (64-422); IMMUNOGLOBULIN G 2163 mg/dL (700-1600); IMMUNOGLOBULIN M 139 mg/dL (26-217)
== END 2019-04-09 19:00 | disposition expired | DRG 871 ==
LOC: ER 13:16 → 5WST 16:54 → EDBEDREQ 17:08 → ENRESERV 22:12 → 5EST 04-07 12:37 → CVICU 04-07 17:00
PROVIDERS: ADMIT Internal Medicine; ATTEND Internal Medicine
PROC: 30233N1 Transfusion of Nonautologous Red Blood Cells into Peripheral Vein, Percutaneous Approach (ICD-10-PCS; 2019-03-31)
PROC: 0W9G3ZZ Drainage of Peritoneal Cavity, Percutaneous Approach (ICD-10-PCS; principal; 2019-04-01)
PROC: 0DB68ZX Excision of Stomach, Via Natural or Artificial Opening Endoscopic, Diagnostic (ICD-10-PCS; 2019-04-06)
PROC: 5A1945Z Respiratory Ventilation, 24-96 Consecutive Hours (ICD-10-PCS; 2019-04-07)
PROC: 0BH17EZ Insertion of Endotracheal Airway into Trachea, Via Natural or Artificial Opening (ICD-10-PCS; 2019-04-07)
PROC: 05HY33Z Insertion of Infusion Device into Upper Vein, Percutaneous Approach (ICD-10-PCS; 2019-04-08)
PROC: B54MZZA Ultrasonography of Right Upper Extremity Veins, Guidance (ICD-10-PCS; 2019-04-08)
DX: A41.9 Sepsis, unspecified organism (principal); J96.01 Acute respiratory failure with hypoxia; N17.0 Acute kidney failure with tubular necrosis; E43 Unspecified severe protein-calorie malnutrition; G93.41 Metabolic encephalopathy; G82.50 Quadriplegia, unspecified; R65.21 Severe sepsis with septic shock; D65 Disseminated intravascular coagulation [defibrination syndrome]; I50.43 Acute on chronic combined systolic (congestive) and diastolic (congestive) heart failure; J69.0 Pneumonitis due to inhalation of food and vomit; J96.02 Acute respiratory failure with hypercapnia; R17 Unspecified jaundice; R18.8 Other ascites; D62 Acute posthemorrhagic anemia; D61.818 Other pancytopenia; E87.1 Hypo-osmolality and hyponatremia; E87.4 Mixed disorder of acid-base balance; Z16.24 Resistance to multiple antibiotics; I42.9 Cardiomyopathy, unspecified; Z68.1 Body mass index [BMI] 19.9 or less, adult; I11.0 Hypertensive heart disease with heart failure; D63.8 Anemia in other chronic diseases classified elsewhere; E78.5 Hyperlipidemia, unspecified; E87.6 Hypokalemia; I34.0 Nonrheumatic mitral (valve) insufficiency; I48.0 Paroxysmal atrial fibrillation; Z96.653 Presence of artificial knee joint, bilateral; Z87.891 Personal history of nicotine dependence; E03.9 Hypothyroidism, unspecified; E16.2 Hypoglycemia, unspecified; F03.90 Unspecified dementia, unspecified severity, without behavioral disturbance, psychotic disturbance, mood disturbance, and anxiety; E83.42 Hypomagnesemia; E87.5 Hyperkalemia; I25.10 Atherosclerotic heart disease of native coronary artery without angina pectoris; J44.9 Chronic obstructive pulmonary disease, unspecified; K21.9 Gastro-esophageal reflux disease without esophagitis; K29.40 Chronic atrophic gastritis without bleeding; K29.80 Duodenitis without bleeding; K44.9 Diaphragmatic hernia without obstruction or gangrene; K57.30 Diverticulosis of large intestine without perforation or abscess without bleeding; N18.9 Chronic kidney disease, unspecified; R62.7 Adult failure to thrive; Z66 Do not resuscitate; K22.2 Esophageal obstruction; M19.90 Unspecified osteoarthritis, unspecified site; M54.5 Low back pain; T68.XXXA Hypothermia, initial encounter; E53.8 Deficiency of other specified B group vitamins; D50.9 Iron deficiency anemia, unspecified; R26.89 Other abnormalities of gait and mobility; G89.29 Other chronic pain; Z79.899 Other long term (current) drug therapy; Z79.01 Long term (current) use of anticoagulants; Z95.3 Presence of xenogenic heart valve; Z88.0 Allergy status to penicillin; Z88.2 Allergy status to sulfonamides; Z88.6 Allergy status to analgesic agent; Z86.73 Personal history of transient ischemic attack (TIA), and cerebral infarction without residual deficits; Z90.49 Acquired absence of other specified parts of digestive tract; Z91.14 Patient's other noncompliance with medication regimen; Z51.5 Encounter for palliative care
CPT/HCPCS: 36415; 36600; 49083; 71045; 74176; 76705; 76937; 80048; 80053; 80076; 80162; 81003; 82105; 82140; 82270; 82375; 82378; 82607; 82728; 82746; 82784; 82805; 82947; 82962; 83540; 83550; 83735; 83880; 84134; 84145; 84439; 84443; 84484; 85014; 85018; 85025; 85049; 85384; 86334; 86850; 86870; 86900; 86920; 87070; 87077; 87186; 88305; 88313; 90686; 90732; 92523; 92610; 93005; 93306; 94640; 97162; 97167; 99291; C1725; C9113; J1250; J1442; J1644; J1885; J1940; J2250; J2370; J2405; J3010; J3370; J3475; J3480; J3490; J7030; J7042; J7050; J7060; J7626; P9016; P9041; P9047